=== PATIENT | female | born 1970 | race American Indian/Alaskan Native ===

== ENCOUNTER 2019-09-17 00:34 | Emergency (ER) | payer OTHER, SELFPAY ==
[2019-09-17] VITALS (9 sets, daily range): BP systolic 115–146; BP diastolic 76–97; PULSE 63–106; RESP 12–20; TEMP 36.6–36.8; O2SAT 97–100
--- NOTE | ~2019-09-17 | XR_ITS ---
XR wrist LT 2V DATE: 09/17/2019 00:57 INDICATION: Fall, left wrist injury and subsequent deformity TECHNIQUE: 2 views COMPARISON: None FINDINGS: There is a distal radial transverse mildly comminuted metaphyseal fracture with approximate ly three quarters dorsal displacement and prominent apex anterior angulation. Radiocarpal alignment i s intact. IMPRESSION: Dorsally displaced prominently apex anteriorly angulated distal radial metaphyseal fractu re Reviewed, dictated and finalized at location A. ETHYLENE COMBINER IMPRESSION: Dorsally displaced prominently apex anteriorly angulated distal rad ial metaphyseal fracture
--- NOTE | ~2019-09-17 | XR_ITS ---
XR wrist LT 2V DATE: 09/17/2019 04:38 INDICATION: Distal radial fracture TECHNIQUE: AP and lateral views COMPARISON: None FINDINGS: Forearm and wrist splint. There is approximately 50% dorsal displacement and approximately 17 degrees apex anterior angulation at the mildly comminuted transverse distal right metaphyseal fracture. Radiocarpal alignment is prese rved. There is dorsal inclination of the distal radial articular surface. The distal ulna appears int act. IMPRESSION: 50% dorsal displacement and approximately 17 degrees apex anterior angulation of distal r adial metaphyseal fracture Reviewed, dictated and finalized at location A. MACEUTICAL PLANT OPERATOR IMPRESSION: 50% dorsal displacement and approximately 17 degrees apex anterior angulation of distal radial metaphyseal fracture
--- NOTE | ~2019-09-17 | XR_ITS ---
XR wrist LT 2V DATE: 09/17/2019 02:04 INDICATION: Left wrist fracture TECHNIQUE: 2 views COMPARISON: 09/17/2019 left wrist FINDINGS: There is bandage wrap around the left wrist. There is approximately 50% dorsal displacement and diminished apex anterior angulation at the comminuted transverse distal radial metaphyseal fract ure. There is dorsal inclination of distal radial articular surface. The carpal alignment is intact. IMPRESSION: Diminished but residual dorsal displacement and apex anterior angulation Reviewed, dictated and finalized at location A. ICAL RESEARCH MANAGER IMPRESSION: Diminished but residual dorsal displacement and apex anterior angul ation
--- NOTE | 2019-09-17 01:09 | ED.UPPEXIN ---
HPI - Extremity Injury (Upper) General Chief Complaint: Extremity Injury, Upper Stated Complaint: BROKEN WRIST Time Seen by Provider: 09/17/19 01:04 Source: patient Mode of arrival: ambulatory Limitations: no limitations History of Present Illness HPI narrative: A 49 y/o female presents to the ED with c/o lt wrist pain. She notes that yesterday night she slipped and fell in her kitchen and landed on her left wrist. She rates the left wrist pain a 4/10 in the ED. Pt reports left index finger numbness, but denies HI. She notes that she drank some alcohol tonight. There is obvious deformity to her left wrist. Patient denies loss of consciousness. She denies headache pain. She is not anticoagulated. She denies any neck pain. She denies any weakness in her lower extremities or back pain. MD complaint: injury to: left and wrist Onset (ago): hour(s) (Yesterday night) Other Extremity Injury: Left: wrist Other injuries: none Place: home Severity scale (1-10): 4 Context: fall Associated symptoms: numbness (Left index finger) Related Data Allergies Allergy/AdvReac Type Severity Reaction Status Date / Time No Known Allergies Allergy Verified 09/17/19 01:16 Review of Systems Review of Systems: Narrative: CONSTITUTIONAL: Denies fever, chills, or sweats. EYES: Denies visual changes, redness, or discharge. CARDIOVASCULAR: Denies chest pain, palpitations, or edema. RESPIRATORY: Denies cough or dyspnea. GASTROINTESTINAL: Denies abdominal pain, nausea, vomiting, or diarrhea. SKIN: Denies rash or itching. MUSCULOSKELETAL: Denies back pain, joint pain, or myalgia. Reports left wrist pain. NEUROLOGIC: Denies headache, HI, or weakness. Reports left index finger numbness. All systems reviewed & are unremarkable except as noted in HPI and below PMFSH Past Medical History Medical History (Updated 09/17/19 @ 04:52 by Amanda Frazier MD) Anxiety Arm fracture, left Depression HTN (hypertension) Miscarriage Ovarian torsion Fixed with surgery UTI (urinary tract infection) Surgical History Surgical History (Updated 09/17/19 @ 01:49 by Fadumo Juarez) No pertinent past surgical history Family History Family History Other Diabetes mellitus Family history of alcoholism Social History Social History Second hand tobacco smoke exposure: No Alcohol intake: current Gender identity (if verbalized by the patient): Female Exam Narrative: Exam Narrative: GENERAL: Well-appearing, well-nourished, and in no acute distress. HEAD: Normocephalic, atraumatic. EYES: PERRLA and EOMI. ENT: Nares clear, no rhinorrhea or epistaxis. Mucous membranes moist. NECK: Supple. CHEST: Clear to auscultation. No respiratory distress. HEART: Regular rate and rhythm. No murmur heard. Normal peripheral pulses. Radial pulses 2+. ABDOMEN: Soft, nontender, nondistended, normal active bowel sounds. EXTREMITIES: Normal range of motion. No edema. Deformity to left wrist. Intact sensation median, ulnar, radial nerve distribution. Capillary refill less than 3 seconds. SKIN: Warm, dry, no rash. NEURO: No focal deficits. Alert and oriented X3. Neurovascularly intact. Course Course Emergency Course: Patient with left wrist fracture, deformity, but is neurovascularly intact at the time of assessment. Attempted initial reduction, but patient required procedural sedation due to degree of pain. Patient tolerated procedural sedation and reduction well as well as splinting. We had improved alignment on repeat x-rays. Given follow-up with orthopedic surgery and discharged home. Vital Signs Vital signs: Vital Signs Temperature 36.6 C 09/17/19 00:58 Pulse Rate 63 09/17/19 00:58 Respiratory Rate 18 09/17/19 00:58 Blood Pressure 115/83 09/17/19 00:58 Pulse Oximetry 100 09/17/19 00:58 Temperature 36.8 C 09/17/19 04:45 Pulse Rate 88 09/17/19 04:45 Resp
[2019-09-17] MEDS: MIDAZOLAM HCL 2 MG/2 ML VIAL 1 MG IV PUSH (04:11)
[2019-09-17] MEDS: SODIUM CHLORIDE 0.9% IV 1,000 ML 1000 ML (04:27)
== END 2019-09-17 05:02 | disposition home or self-care (01) ==
PROVIDERS: Emergency Provider Emergency Medicine; PCP Family Medicine
DX: S59.292A Other physeal fracture of lower end of radius, left arm, initial encounter for closed fracture (principal); Z87.440 Personal history of urinary (tract) infections; W01.0XXA Fall on same level from slipping, tripping and stumbling without subsequent striking against object, initial encounter
CPT/HCPCS: 25605; 73100; 99285; A9270; J2250; J3010; J7030

== ENCOUNTER 2020-02-13 14:18 | Outpatient (CLI) | payer OTHER, SELFPAY ==
--- NOTE | 2020-02-13 | ECG_ITS ---
Measurements Intervals [place] Rate: 108 P: -47 MT: 131 QRS: 11 QRSD: 88 T: 62 QT: 344 QTc: 462 Interpretive Statements ECTOPIC ATRIAL TACHYCARDIA DELAYED PRECORDIAL R/S TRANSITION LOW QRS VOLTAGE IN LIMB LEADS BORDERLINE ST-T WAVE ABNORMALITY- INF/LAT LEADS BASELINE ARTIFACT- I, II, AVR, AVL, AVF ABNORMAL ECG Electronically Signed On 02-15-2020 10:01:28 CDT by Nba Arevalo D.O.
--- NOTE | ~2020-02-13 | XR_ITS ---
XR chest 2V 02/13/2020 15:15 Indication: Redness of breath. Sternal chest pain. Hypertension. Procedure: 2 view chest Comparison: 03/28/2018 Findings: Heart size normal. Chronic elevation of the right diaphragm, possibly phrenic nerve paralys is. No focal air space disease, pulmonary edema, pleural effusion or suspected pneumothorax. No acute osseous abnormality. Impression: 1: No acute cardiopulmonary disease. Reviewed, dictated and finalized at location A. Impression: 1: No acute cardiopulmonary disease.
--- NOTE | ~2020-02-13 | CT_ITS ---
EXAMINATION: CT abdomen pelvis w con DATE: 02/13/2020 15:04 INDICATION: Abdominal pain. Jaundice. TECHNIQUE: Computed tomography (CT) of the abdomen and pelvis was performed without intravenous contr ast. Automated exposure control and iterative reconstruction technique were employed. Exam dose: 246 .85 mGy-cm total exam DLP. COMPARISON: None. FINDINGS: There is discoid atelectasis or scarring in the right lower lobe. No infiltrate or consolid ation at the lung bases. Heart size is normal. No pericardial or pleural effusion. There is hepatomegaly and prominent fatty infiltration of the liver. The gallbladder is present. No bile duct or pancreatic duct dilatation. Normal splenic size. No pancreatic mass lesion or calcification or ductal dilatation. Normal morphology of the adrenal glands. There is an approximately 10.5 mm right renal cyst. Small nonobstructing left renal calculus is sugge sted. The abdominal aorta is of normal caliber. No intraperitoneal or retroperitoneal or pelvic mass lesion or adenopathy. There is a mild amount of free fluid in the cul-de-sac extending into the right adnex al area. The uterus and adnexal areas are otherwise unremarkable. The urinary bladder is completely e vacuated. An approximately 1.5 cm cyst is noted along the left vaginal wall. No bowel obstruction or intraperitoneal free air. Normal appendix. No suspicious osteolytic or osteoblastic lesions are noted. IMPRESSION: Hepatomegaly Hepatic steatosis No evidence of bile duct dilatation to account for jaundice 10.5 mm right renal cyst Possible small nonobstructing left renal calculus Reviewed, dictated and finalized at Location A. Reviewed, dictated and finalized at location B.
[2020-02-13 14:56] LABS: Estimated Glomerular Filt Rate > 60
[2020-02-13 15:54] LABS: Basophils Absolute Auto 0.1 K/mm3 (0.0-0.1); Basophils Percent Auto 0.7 % (0.2-1.2); Eosinophils Percent Auto 0.2 % (0-4.4); Hematocrit 39.1 % (37.0-47.0); Immature Granulocyte Percent A 0.7 % (0-0.5); Lymphocytes Absolute Auto 0.64 K/mm3 (0.9-3.2); Lymphocytes Percent Auto 4.2 % (18.3-44.2); Mean Corpuscular HGB Conc 33.2 g/dl (32-36); Mean Corpuscular Hemoglobin 35.2 pg (26-34); Mean Platelet Volume 11.5 fl (7.4-10.4); Monocytes Absolute Auto 1.4 K/mm3 (0.1-0.6); Monocytes Percent Auto 8.8 % (2.6-8.5); Neutrophils Absolute Auto 13.1 K/mm3 (1.3-6.7); Neutrophils Percent Auto 85.4 % (45.5-73.1); Platelet Count Result 205 k/mm3 (150-375); Red Blood Count 3.69 M/mm3 (4.2-5.4); Red Cell Distribution Width 19.8 % (11.5-14.5); White Blood Count 15.3 K/mm3 (4.5-10.0)
[2020-02-13 16:15] LABS: Alanine Aminotransferase 31 U/L (4-35); Albumin Level 3.4 g/dL (3.5-5.1); Alkaline Phosphatase 543 U/L (38-126); Amylase 56 U/L (30-110); Aspartate Amino Transferase 151 U/L (14-36); Bilirubin,Total 10.3 mg/dL (0.2-1.3); Blood Urea Nitrogen 2 mg/dL (7-17); Calcium 8.8 mg/dL (8.4-10.2); Carbon Dioxide 25 mmol/L (22-30); Chloride 98 mmol/L (98-107); Estimated Glomerular Filt Rate > 60; Glucose 100 mg/dL (65-105); Lipase 219 U/L (23-300); Magnesium 1.6 mg/dL (1.6-2.3); Potassium 2.7 mmol/L (3.4-5.0); Sodium 135 mmol/L (137-145)
[2020-02-13 16:40] LABS: Hepatitis B Surface Antigen Negative (Negative)
[2020-02-13 16:46] LABS: HAV RESULT Negative (Negative); Hepatitis B Core IgM Result Negative (Negative)
[2020-02-13 16:58] LABS: Hepatitis C Virus Antibody Negative (Negative)
[2020-02-13 17:12] LABS: Folic Acid 3.9 ng/mL (2.76->20)
[2020-02-15 13:54] LABS: GGT 896 U/L (3-70)
== END 2020-02-13 14:19 | disposition home or self-care (01) ==
PROVIDERS: PCP Family Medicine; Visit Provider Nurse Practitioner Family
DX: K76.0 Fatty (change of) liver, not elsewhere classified (principal); R94.31 Abnormal electrocardiogram [ECG] [EKG]
CPT/HCPCS: 36415; 71046; 74177; 80053; 80074; 82150; 82607; 82746; 82977; 83690; 83735; 85025; 93005; Q9967

== ENCOUNTER 2020-02-13 16:40 | Observation (INO) | payer OTHER, SELFPAY ==
--- NOTE | ~2020-02-13 | MR_ITS ---
EXAMINATION: MR MRCP wo/w con/w 3D wo ind DATE: 02/14/2020 13:37 INDICATION: Abnormal liver function tests. TECHNIQUE: Magnetic resonance imaging (MRI) of the abdomen was performed without and with 10 mL Multi Jenna intravenous contrast. Sequences included coronal T2-weighted FS FSE, coronal T2-weighted FSE, a xial T1-weighted LAVA, coronal FS FIESTA, axial dual-echo T1-weighted SPGR, coronal lava-FLEX, sagitt al T2-weighted FSE, axial T2-weighted FSE, and axial DWI. Thick-slab T2-weighted FSE images were obta ined for magnetic resonance cholangiopancreatography (MRCP). Maximum intensity projection 3-D reconst ructions of the volumetric data were created by the technologist. Postcontrast sequences included cor onal LAVA-flex and time course of axial T1-weighted LAVA. COMPARISON: CT abdomen and pelvis 02/13/2020 FINDINGS: ABDOMEN MRI: There is diffuse hepatic steatosis. The gallbladder is normal in size. No gallstones. Th e spleen, pancreas, adrenal glands, and left kidney are normal. There is a 10 mm cyst in right kidney . There are no dilated loops of bowel. There are no pathologically enlarged lymph nodes. There is no free intraperitoneal fluid. ABDOMEN MRCP: The common duct is normal and measures 4 mm. No choledocholithiasis. IMPRESSION: 1. Diffuse hepatic steatosis. Reviewed, dictated and finalized at location A.
[2020-02-13 17:29] VITALS: BP 95/46; PULSE 112; RESP 18; TEMP 36.5; O2SAT 100
--- NOTE | 2020-02-13 17:32 | ECG_ITS ---
Measurements Intervals [place] Rate: 112 P: -44 WV: 128 QRS: 16 QRSD: 89 T: 29 QT: 342 QTc: 468 Interpretive Statements SINUS TACHYCARDIA DELAYED PRECORDIAL R/S TRANSITION BORDERLINE ST-T WAVE ABNORMALITY- DIFFUSE LEADS BASELINE ARTIFACT- I, III, V3-V5 ABNORMAL ECG Electronically Signed On 02-13-2020 19:29:31 CDT by Nba Arevalo D.O.
[2020-02-13 17:41] LABS: Hematocrit 39.1 % (37.0-47.0); Hemoglobin 13.1 g/dL (12.0-15.0); Mean Corpuscular HGB Conc 33.5 g/dl (32-36); Mean Corpuscular Hemoglobin 34.9 pg (26-34); Mean Corpuscular Volume 104.3 fl (80-100); Mean Platelet Volume 11.3 fl (7.4-10.4); Platelet Count Result 212 k/mm3 (150-375); Red Blood Count 3.75 M/mm3 (4.2-5.4); Red Cell Distribution Width 19.6 % (11.5-14.5)
[2020-02-13 17:56] LABS: Alanine Aminotransferase 30 U/L (4-35); Albumin Level 3.3 g/dL (3.5-5.1); Alkaline Phosphatase 475 U/L (38-126); Aspartate Amino Transferase 145 U/L (14-36); Bilirubin,Total 9.8 mg/dL (0.2-1.3); Blood Urea Nitrogen 2 mg/dL (7-17); Calcium 8.8 mg/dL (8.4-10.2); Carbon Dioxide 27 mmol/L (22-30); Chloride 96 mmol/L (98-107); Estimated CRCL calculation 100 ml/min; Estimated Glomerular Filt Rate > 60; Glucose 127 mg/dL (65-105); Lipase 132 U/L (23-300); Potassium 2.9 mmol/L (3.4-5.0); Sodium 132 mmol/L (137-145)
[2020-02-13 17:58] LABS: Anisocytosis 2+ (NORMAL); Band Neutrophils Percent 4 % (0-6); Lymphocytes Absolute Manual 0.56 K/mm3 (1.1-4.5); Monocytes Absolute Manual 1.26 K/mm3 (0.1-0.90); Monocytes Percent Manual 9 % (3-9); Neutrophils Absolute Manual 12.18 K/mm3 (1.7-7.2); Neutrophils Percent Manual 83 % (46-73); Platelet Estimate Adequate (Adequate); Total Cells Counted 100
[2020-02-13 18:11] VITALS: BP 101/65; PULSE 115; RESP 13; O2SAT 100
--- NOTE | 2020-02-13 18:12 | PC.NURSE ---
Patient unable to give urine at this time, patient will attempt again later. patient declines straight cath at this time.
[2020-02-13 19:09] LABS: Add Urine Microscopic? YES; Appearance Urine Clear (Clear); Bacteria Urine Trace /hpf; Bilirubin Urine 2+ (Negative); Blood Urine 3+ (Negative); Color Urine Amber (Yellow); Glucose Urine UA Negative (Negative); Ketones Urine Negative (Negative); Leukocyte Esterase Ur 1+ LEU/UL (Negative); Mucus Urine Rare /lpf; Nitrate Urine Negative (Negative); Protein Urine 1+ mg/dL (Negative); RBC Urine >75 /hpf (0-2); Squamous Epithelial Cell Urine Many /hpf (Few); WBC Urine 0-3 /hpf
[2020-02-13 19:12] LABS: Specific Grav Ur > 1.060 (1.001-1.035)
[2020-02-13 19:16] LABS: INR 1.2; Partial Thromboplastin Time 31.3 SECONDS (22.3-36.8); Prothrombin Time 15.3 Seconds (11.1-14.7)
--- NOTE | 2020-02-13 19:20 | ED.GENADULT ---
HPI - General Adult General Chief complaint: Recheck/Abnormal Lab/Rx Stated complaint: jaundice, low potassium Time Seen by Provider: 02/13/20 17:55 History of Present Illness HPI narrative: Patient is a 49 y/o female sent to ED by PCP for low potassium. She states that she has generalized abdominal pain for 1 week. She describes her pain as aching and rates it as 4/10. There is alleviating or exacerbating factor. Her pain radiates to her pain to chest sometimes. She has no vomiting or diarrhea. She was seen by her PCP today. Labs were ordered. She was then told by PCP's office to come to ED for evaluation due to abnormal labs. Related Data Home Medications Medication Instructions Recorded Confirmed lisinopril-hydrochlorothiazide 1 tablet PO DAILY 02/14/20 02/14/20 Allergies Allergy/AdvReac Type Severity Reaction Status Date / Time No Known Allergies Allergy Verified 09/26/19 13:44 Review of Systems Constitutional: Constitutional: Denies chills, Denies fever(s), Denies headache(s), Reports lethargy, Reports malaise and Denies weakness Eyes: Eyes: Denies blurry vision ENT: Denies headache(s) and Denies neck pain Cardiovascular: Cardiovascular: Reports chest pain and Denies dyspnea Respiratory: Respiratory: Denies cough and Denies dyspnea Gastrointestinal: Gastrointestinal: Reports abdominal pain, Denies diarrhea, Denies nausea and Denies vomiting Genitourinary: Genitourinary: Denies hematuria and Denies dysuria Musculoskeletal: Musculoskeletal: Denies back pain and Denies neck pain Neurologic: Denies headache(s) and Denies weakness [facility] Past Medical History Medical History Anxiety Arm fracture, left Depression HTN (hypertension) Miscarriage Ovarian torsion Fixed with surgery UTI (urinary tract infection) Surgical History Surgical History No pertinent past surgical history Family History Family History Other Diabetes mellitus Family history of alcoholism Social History Social History Smoking status: Former smoker Tobacco type: cigars Second hand tobacco smoke exposure: No Alcohol intake: current Drinks per week: 4 Substance use: never Gender identity (if verbalized by the patient): Female Sexual Orientation (if Verbalized by the Patient): Straight or Heterosexual Spiritual care concerns: No Exam Const: General: no acute distress and ill appearing Orientation/consciousness: oriented to person, oriented to place, oriented to time and patient oriented x3 HENMT: Head: normocephalic Ears: external ears normal General nose exam: Normal external nose present Eyes: General: appearance normal, both eyes and all related structures Conjunctivae: conjunctival abnormality (yellowish discoloration) diffuse Neck: Neck: normal visual inspection and full ROM Chest: Chest palpation & inspection: normal inspection of the chest and no tenderness Resp: Effort & Inspection: normal respiratory effort Auscultation: clear to auscultation bilaterally Cardio: Rate: tachycardic Rhythm: regular rhythm GI: GI Palp: No abdominal tenderness and Yes Soft to palpation Skin: General skin exam: normal color and turgor normal Neuro: General: oriented to person, oriented to place, oriented to time and patient oriented x3 Cognition (Neuro): normal cognition Extrem: General: normal to inspection, full ROM and no pedal edema Psych: Appearance: grossly normal Mental Status: mental status grossly normal Affect: normal affect Course Consultations Consultation #1: Discussed with Dr. Aguilar (GI), who recommends admission for observation and he will consult. Date: 02/13/20 Time: 20:44 Consultation #2: Discussed with Dr. Fierro, who will admit for observation. Date: 02/13/20 Time: 20:53
[2020-02-13] MEDS: POTASSIUM CHLORIDE 20 MEQ TABLET 40 MEQ PO (19:21)
[2020-02-13 20:56] VITALS: BP 97/63; PULSE 93; RESP 20; O2SAT 100
[2020-02-13 23:17] VITALS: BP 102/67; PULSE 93; RESP 19; O2SAT 100
[2020-02-13 23:40] VITALS: BP 115/66; PULSE 102; RESP 16; TEMP 36.8; O2SAT 100; BMI 17.9
--- NOTE | 2020-02-13 23:44 | ADMGEN ---
This patient, Nirmala Baker, was admitted to [facility] Surg Room 303-01. Patient/family oriented to hospital policies and general routines including ID bracelet, bed and alarms, visiting hours, pain management, procedures, bathroom and other care routines, personal items, smoking policy, room service/diet, and visiting hours. Valuables list has been completed. Information on how to activate the Rapid Response Team has been discussed. Patient/Family are encouraged to report perceived risks to care and to ask questions if they do not understand what they are told or what they should do.
[2020-02-14] VITALS (9 sets, daily range): BP systolic 93–113; BP diastolic 52–75; PULSE 68–112; RESP 16; TEMP 36.7–37.4; O2SAT 99–100; BMI 17.9
--- NOTE | 2020-02-14 08:05 | WPDGICN ---
Assessment and Plan Assessment and plan (1) Alcoholic hepatitis: Code(s): K70.10 - Alcoholic hepatitis without ascites Status: Acute Assessment and Plan: Marked elevation of LFTs in a pattern consistent with alcoholic hepatitis. AST much greater than ALT. CT scan with no evidence of biliary dilatation. Hepatitis ABC serologies are negative. Plan is for strict alcohol avoidance. Alcohol rehabilitation strongly encouraged after discharge. Patient will need to avoid alcohol. Outpatient follow-up in the office will be arranged. Will obtain additional lab studies to exclude any other potential etiologic factors. GI Consult Note Consult date/time: 02/14/20 08:05 HPI: Nirmala Baker is a 49 year old female seen in evaluation at the request of the emergency room. Patient in usual state of health 3 she reports over last 2 weeks having had a chest and upper abdominal heaviness. For this reason she presented to primary care service electrolytes revealed a low potassium. Upon being evaluated in the emergency room she was noted to be jaundiced with marked elevation of LFTs. Patient denies a fever. She states her weight appetite bowel movements are normal. The chest having this is constant not related to activity nor dietary intake. She has a past medical history of rather heavy alcohol intake for many many years. She states over the last 5 years or more since the of her brother she has been drinking rather heavily. Predominantly vodka. In the past she was told that she had elevated LFTs and for a brief time was associated with AA. She has not attended this for quite some time. Review of Systems Review of Systems: All systems reviewed & are unremarkable except as noted in HPI and below PMFSH Past Medical History Medical History Anxiety Arm fracture, left Depression HTN (hypertension) Miscarriage Ovarian torsion Fixed with surgery UTI (urinary tract infection) Surgical History Surgical History No pertinent past surgical history Family History Family History Other Diabetes mellitus Family history of alcoholism Social History Social History Smoking status: Former smoker Tobacco type: cigars Second hand tobacco smoke exposure: No Alcohol intake: current Drinks per week: 4 Substance use: never Gender identity (if verbalized by the patient): Female Sexual Orientation (if Verbalized by the Patient): Straight or Heterosexual Spiritual care concerns: No Meds Home Medications and Allergies Home Medications Medication Instructions Recorded Confirmed Type alprazolam 0.25 mg tablet 0.25 mg PO TID PRN #90 tablet 12/16/19 02/14/20 Rx lisinopril-hydrochlorothiazide 1 tablet PO DAILY 02/14/20 02/14/20 History Allergies Allergy/AdvReac Type Severity Reaction Status Date / Time No Known Allergies Allergy Verified 09/26/19 13:44 Vital Signs Vital Signs - 24 hr 02/13/20 17:29 02/13/20 18:11 02/13/20 20:56 Temperature 97.7 F Pulse Rate 112 H 115 H 93 Respiratory Rate 18 13 20 Blood Pressure 95/46 L 101/65 97/63 L Pulse Oximetry 100 100 100 02/13/20 23:17 02/13/20 23:40 02/14/20 00:00 Temperature 98.2 F Pulse Rate 93 102 H 97 Respiratory Rate 19 16 Blood Pressure 102/67 115/66 Pulse Oximetry 100 100 02/14/20 04:00 02/14/20 06:00 Temperature 99.4 F Pulse Rate 112 H 86 Respiratory Rate 16 Blood Pressure 93/52 L Pulse Oximetry 100 Exam Narrative: Exam Narrative: Physical exam reveals patient to be alert. She is afebrile. HEENT exam reveals scleral icterus. Lungs are clear to auscultation and percussion. Heart is without murmur or extra sounds. Abdominal exam bowel sounds are present soft mild midepigastric enlargement of her
[2020-02-14 09:19] LABS: Ammonia 49 umol/L (9-30)
[2020-02-14 09:28] LABS: Alanine Aminotransferase 26 U/L (4-35); Albumin Level 2.9 g/dL (3.5-5.1); Alkaline Phosphatase 417 U/L (38-126); Aspartate Amino Transferase 124 U/L (14-36); Bilirubin Direct 3.4 mg/dL (0-0.3); Bilirubin,Total 8.3 mg/dL (0.2-1.3); Calcium 8.3 mg/dL (8.4-10.2); Carbon Dioxide 27 mmol/L (22-30); Chloride 103 mmol/L (98-107); Estimated CRCL calculation 147 ml/min; Estimated Glomerular Filt Rate > 60; Glucose 89 mg/dL (65-105); Potassium 3.4 mmol/L (3.4-5.0); Sodium 135 mmol/L (137-145)
[2020-02-14 09:29] LABS: Bilirubin Direct 3.4 mg/dL (0-0.3); Bilirubin Indirect 1.8 mg/dL (0-1.1); Bilirubin,Total 8.3 mg/dL (0.2-1.3)
[2020-02-14 09:29] LABS: Cholesterol 214 mg/dL (0-200); HDL Direct 15 mg/dL; Triglycerides 283 mg/dL (<150)
[2020-02-14 09:40] LABS: LDL Cholesterol Direct 117 mg/dL
[2020-02-14 09:56] LABS: Iron 148 ug/dL (37-170)
[2020-02-14 09:57] LABS: Blood Urea Nitrogen < 2 mg/dL (7-17)
[2020-02-14 10:06] LABS: Percent Iron Saturation 79 % (20-50)
[2020-02-14 11:02] LABS: Erythrocyte Sedimentation Rate 54 mm/hr (0-20)
--- NOTE | 2020-02-14 15:36 | PM.IMHP ---
H&P: HPI History of Present Illness Chief complaint: jaundice Narrative: Nirmala Baker is a 49 year old female with alcohol abuse here for abnormal labs and abdominal pain. Patient states that she started having right upper quadrant and right lower quadrant abdominal pain about 2 weeks ago. She says this is a constant squeezing/tight feeling. She says nothing makes it worse and nothing makes it better. She feels like the skin around her stomach is numb. She has not noticed any jaundice features but her mentioned her eyes being yellow a few days ago. She also noticed her urine being darker 2 months ago. She says she usually drinks 4-5 days a week and drinks 4-5 drinks with 2-3 shots of vodka each. She has been having some nausea and vomiting but no vomiting since being here. She has mild constipation but her last BM was today and has no blood or dark color to it. She denies diarrhea, withdraw type symptoms, chest pain, shortness of breath, itching, fevers, or travel. She has never had an EGD. Her last colonoscopy was 2 years ago. Review of Systems Review of Systems: All systems reviewed & are unremarkable except as noted in HPI and below PMFSH Past Medical History Medical History (Updated 02/14/20 @ 15:51 by Roxie Soto PA-C) Anxiety Arm fracture, left Depression HTN (hypertension) Miscarriage Ovarian torsion Fixed with surgery UTI (urinary tract infection) Surgical History Surgical History (Updated 02/14/20 @ 15:48 by Roxie Soto PA-C) H/O left wrist surgery No pertinent past surgical history Family History Family History (Updated 02/14/20 @ 15:49 by Roxie Soto PA-C) Father Gastric cancer Sibling Alcoholism Other Diabetes mellitus Family history of alcoholism Social History Social History (Updated 02/14/20 @ 15:50 by Roxie Soto PA-C) Social History: As stated above the patient drinks equivalent of 10 drinks 4-5 days a week. She is no longer smoking but has the past history of smoking. She does not work. Her surrogate decision maker is her Marcelo Smoking status: Former smoker Tobacco type: cigars Second hand tobacco smoke exposure: No Alcohol intake: current Drinks per week: 4 Substance use: never Gender identity (if verbalized by the patient): Female Sexual Orientation (if Verbalized by the Patient): Straight or Heterosexual Spiritual care concerns: No Meds Home Medications and Allergies Home Medications Medication Instructions Recorded Confirmed Type alprazolam 0.25 mg tablet 0.25 mg PO TID PRN #90 tablet 12/16/19 02/14/20 Rx lisinopril-hydrochlorothiazide 1 tablet PO DAILY 02/14/20 02/14/20 History Allergies Allergy/AdvReac Type Severity Reaction Status Date / Time No Known Allergies Allergy Verified 09/26/19 13:44 Vital Signs Vital Signs - 24 hr 02/13/20 17:29 02/13/20 18:11 02/13/20 20:56 Temperature 97.7 F Pulse Rate 112 H 115 H 93 Respiratory Rate 18 13 20 Blood Pressure 95/46 L 101/65 97/63 L Pulse Oximetry 100 100 100 02/13/20 23:17 02/13/20 23:40 02/14/20 00:00 Temperature 98.2 F Pulse Rate 93 102 H 97 Respiratory Rate 19 16 Blood Pressure 102/67 115/66 Pulse Oximetry 100 100 02/14/20 04:00 02/14/20 06:00 02/14/20 08:00 Temperature 99.4 F Pulse Rate 112 H 86 91 Respiratory Rate 16 Blood Pressure 93/52 L Pulse Oximetry 100 02/14/20 14:00 Temperature 98.3 F Pulse Rate 98 Respiratory Rate 16 Blood Pressure 110/75 Pulse Oximetry 99 Exam Narrative: Exam Narrative: General: Jaundice patient resting comfortably in bed in no acute distress HEENT: Normocephalic, atraumatic, PERRL, Sclerae icteric, oral mucosa moist. Neck: Supple Resp: CTA Heart: RRR with no murmurs Abd: Soft, tender to the right upper quadrant in the right lower quadrant. Positive bowel sounds. Sensation intact Skin: Yellow, Warm and dry Extremities: No swelling, erythem
[2020-02-14] MEDS: ALPRAZolam 0.25 MG TABLET PO (15:41)
[2020-02-14] MEDS: IBUPROFEN 400 MG TABLET PO (16:42)
[2020-02-14] MEDS: CHOLESTYRAMINE (W/ SUGAR) 4 GM POWD.PACK PO (17:48)
[2020-02-15] VITALS: PULSE 83
[2020-02-15 04:00] VITALS: PULSE 98
[2020-02-15 06:00] VITALS: BP 118/62; PULSE 88; RESP 16; TEMP 36.8; O2SAT 100
[2020-02-15 06:32] LABS: INR 1.2; Prothrombin Time 14.7 Seconds (11.1-14.7)
[2020-02-15 06:33] LABS: Alanine Aminotransferase 23 U/L (4-35); Albumin Level 2.7 g/dL (3.5-5.1); Alkaline Phosphatase 382 U/L (38-126); Aspartate Amino Transferase 109 U/L (14-36); Bilirubin Direct 2.4 mg/dL (0-0.3); Bilirubin,Total 7.1 mg/dL (0.2-1.3); Blood Urea Nitrogen 4 mg/dL (7-17); Calcium 8.2 mg/dL (8.4-10.2); Carbon Dioxide 30 mmol/L (22-30); Chloride 103 mmol/L (98-107); Estimated CRCL calculation 116 ml/min; Estimated Glomerular Filt Rate > 60; Glucose 92 mg/dL (65-105); Magnesium 1.9 mg/dL (1.6-2.3); Potassium 3.3 mmol/L (3.4-5.0); Sodium 138 mmol/L (137-145)
[2020-02-15 08:00] VITALS: PULSE 95
[2020-02-15] MEDS: CHOLESTYRAMINE (W/ SUGAR) 4 GM POWD.PACK PO (09:29)
[2020-02-15] MEDS: ATORVASTATIN 10 MG TABLET PO (09:29)
[2020-02-15] MEDS: POTASSIUM CHLORIDE 20 MEQ TABLET 40 MEQ PO (09:29)
[2020-02-15] MEDS: IBUPROFEN 400 MG TABLET PO (09:42)
--- NOTE | 2020-02-15 10:31 | WPDGICN ---
Assessment and Plan Additional Plan Patient continues to notice epigastric fullness and pressure. On physical exam she is alert. Vital signs are stable. HEENT exam unremarkable. Lungs are clear. Heart without murmur. Abdomen soft and nontender. Palpable left lobe of the liver in the midepigastric area. This appears to be source for his discomfort. Impression 1. Hepatomegaly. Appears to account for patient's admit abdominal discomfort. 2. Alcoholic hepatitis. Markedly elevated LFTs are identified. Long discussion with patient regarding alcohol rehabilitation and avoidance. Plan is for alcohol avoidance and rehab we will plan to follow up in the office in 2-3 weeks along with follow-up LFTs at that time. GI Consult Note Consult date/time: 02/15/20 10:31 HPI: Nirmala Baker is a 49 year old female [facility] Past Medical History Medical History (Updated 02/14/20 @ 15:51 by Roxie Soto PA-C) Anxiety Arm fracture, left Depression HTN (hypertension) Miscarriage Ovarian torsion Fixed with surgery UTI (urinary tract infection) Surgical History Surgical History (Updated 02/14/20 @ 15:48 by Roxie Soto PA-C) H/O left wrist surgery No pertinent past surgical history Family History Family History (Updated 02/14/20 @ 15:49 by Roxie Soto PA-C) Father Gastric cancer Sibling Alcoholism Other Diabetes mellitus Family history of alcoholism Social History Social History (Updated 02/14/20 @ 15:50 by Roxie Soto PA-C) Social History: As stated above the patient drinks equivalent of 10 drinks 4-5 days a week. She is no longer smoking but has the past history of smoking. She does not work. Her surrogate decision maker is her Marcelo Smoking status: Former smoker Tobacco type: cigars Second hand tobacco smoke exposure: No Alcohol intake: current Drinks per week: 4 Substance use: never Gender identity (if verbalized by the patient): Female Sexual Orientation (if Verbalized by the Patient): Straight or Heterosexual Spiritual care concerns: No Meds Home Medications and Allergies Home Medications Medication Instructions Recorded Confirmed Type alprazolam 0.25 mg tablet 0.25 mg PO TID PRN #90 tablet 12/16/19 02/14/20 Rx lisinopril-hydrochlorothiazide 1 tablet PO DAILY 02/14/20 02/14/20 History Allergies Allergy/AdvReac Type Severity Reaction Status Date / Time No Known Allergies Allergy Verified 09/26/19 13:44 Vital Signs Vital Signs - 24 hr 02/14/20 12:00 02/14/20 14:00 02/14/20 16:00 Temperature 98.3 F Pulse Rate 99 98 96 Pulse Rate [Monitor] 95 Respiratory Rate 16 Blood Pressure 110/75 113/61 Pulse Oximetry 99 02/14/20 20:00 02/14/20 21:26 02/15/20 00:00 Temperature 98.0 F Pulse Rate 87 68 83 Pulse Rate [Monitor] Respiratory Rate 16 Blood Pressure 105/61 Pulse Oximetry 100 02/15/20 04:00 02/15/20 06:00 Temperature 98.2 F Pulse Rate 98 88 Pulse Rate [Monitor] Respiratory Rate 16 Blood Pressure 118/62 Pulse Oximetry 100 Results Labs CBC & Chem 7: 02/13/20 17:34 02/15/20 05:43 Labs: BMP 02/15/20 05:43 Sodium 138 Potassium 3.3 L Chloride 103 Carbon Dioxide 30 BUN 4 L Creatinine 0.40 L Glucose 92 Calcium 8.2 L Liver Function 02/15/20 Range/Units 05:43 Total Bilirubin 7.1 H (0.2-1.3) mg/dL Direct Bilirubin 2.4 H (0-0.3) mg/dL AST 109 H (14-36) U/L ALT 23 (4-35) U/L Alkaline Phosphatase 382 H (38-126) U/L Albumin 2.7 L (3.5-5.1) g/dL
--- NOTE | 2020-02-15 11:27 | PM.DS ---
DS: Admitting Diagnosis Admitting Diagnosis Admitting Diagnosis: Alcoholic hepatitis without ascites DS: Discharge Diagnosis Discharge Diagnosis (1) Alcoholic hepatitis: Code(s): K70.10 - Alcoholic hepatitis without ascites Status: Acute Assessment and Plan: -----patient's last bilirubin is 7.1 from 10.3 on admission. She is not experiencing any itching but does have jaundice and tea-colored urine. MRCP shows hepatic steatosis. Alk phos is significantly elevated. AST high. These abnormalities are likely linked to alcoholism but we will rule out more rare conditions such as PSC, PBC, autoimmune and other causes. GGT, AFP, AAT and M2ab still pending. Hep screen negative. GI plans to follow outpt. Pt understands she needs to quit drinking. (2) Alcohol abuse: Code(s): F10.10 - Alcohol abuse, uncomplicated Status: Acute Assessment and Plan: -----No signs of withdraw. (3) Hypokalemia: Code(s): E87.6 - Hypokalemia Status: Acute Assessment and Plan: -----Resolved. (4) Jaundice: Code(s): R17 - Unspecified jaundice Status: Acute Assessment and Plan: -----See above. (5) Hypertension: Code(s): I10 - Essential (primary) hypertension Status: Acute Assessment and Plan: -----Last bp 118/62. Pt has been running low. Bp meds stopped. pcp notified. (6) Anxiety: Code(s): F41.9 - Anxiety disorder, unspecified Status: Acute Assessment and Plan: -----PRN xanax. (7) Leukocytosis: Code(s): D72.829 - Elevated white blood cell count, unspecified Status: Acute Assessment and Plan: -----WBC improving. No evidence of infection on exam or imaging. CXR, UA, and MRCP show no infection. Pt has been afebrile and has no complaints. May be chronic. Spoke with pcp about this. f/u as needed. (8) Hematuria: Code(s): R31.9 - Hematuria, unspecified Status: Acute Assessment and Plan: -----Noted in her UA. Pt has hx of smoking. Plans to f/u with urology outpatient. Educated pt on differential. DS: Summary Hospital Course Reason for hospitalization: abnormal labs Hospital Course: Pt is a 49 y/o female here for hypokalemia and abnormal liver functions. Pt was placed in observation and did well in the hospital. Her bili slowly trended down and she showed no signs of infection. Work up as above, but jaundice and abnormal labs likely d/t alcoholic hepatitis. Pt had sensation of 'numbness' to her stomach in all 4 quadrants. No abnormalities seen on exam and pt was able to differentiate hot, cold, sharp and dull. Overall, patient has no complaints the next day and seems motiviated to quit drinking. She understands that if she doesn't she has a high chance of mortality. She has no symptoms to ETOH withdraw and has no hx of this either. Pt was educated about the worrisome signs and symptoms to come back to the ER for and was discharged in stable condition. Status at Discharge Functional status at discharge: independent ambulation Overall status at discharge: patient is progressing back to baseline Time Spent with Patient Time attestation: Total time spent providing and/or coordinating discharge services:32 min Time spent: Greater than 30 minutes Exam Narrative: Exam Narrative: General: Jaundice patient resting comfortably in bed in no acute distress HEENT: Normocephalic, atraumatic, PERRL, Sclerae icteric, oral mucosa moist. Neck: Supple Resp: CTA Heart: RRR with no murmurs Abd: Soft, tender to the right upper quadrant in the right lower quadrant. Positive bowel sounds. Pt has normal hot/cold/sharp/dull sensation in all four quadrants. Skin: Yellow, Warm and dry Extremities: No swelling, erythema or pain to palpation Neuro: Alert and Oriented x4 . CN 2-12 intact. No focal neurological deficits. DS: Data Data Completed and Pending Labs on day of discharge: Blake
[2020-02-15 14:00] VITALS: BP 134/91; PULSE 86; RESP 18; TEMP 36.6; O2SAT 100
[2020-02-16 10:05] LABS: GGT 764 U/L (3-70)
[2020-02-17 09:28] LABS: Mitochondrial (M2) Ab (IgG) <=20.0 U (<=20.0)
[2020-02-18 17:58] LABS: Alpha Fetoprotein Tumor Marker 2.6 ng/mL (<6.1)
== END 2020-02-15 13:30 | disposition home or self-care (01) ==
LOC: ANHED 18:18 → ANH3MEDSUR 21:51
PROVIDERS: Emergency Medicine; Internal Medicine Gastroenterology; Physician Assistant; Admitting Provider Family Medicine; Emergency Provider Emergency Medicine; PCP Family Medicine; Visit Provider Internal Medicine
DX: K70.10 Alcoholic hepatitis without ascites (principal); F10.10 Alcohol abuse, uncomplicated; R31.9 Hematuria, unspecified; D72.829 Elevated white blood cell count, unspecified; I10 Essential (primary) hypertension; F41.9 Anxiety disorder, unspecified; Z87.891 Personal history of nicotine dependence; Z79.899 Other long term (current) drug therapy
CPT/HCPCS: 36415; 74183; 76376; 80048; 80053; 80061; 80076; 81001; 81025; 82104; 82105; 82140; 82247; 82248; 82728; 82977; 83520; 83540; 83550; 83690; 83735; 84443; 85025; 85610; 85652; 85730; 86038; 86039; 93005; 99285; A9270; A9577; G0378

== ENCOUNTER 2020-02-21 09:15 | Outpatient (CLI) | payer OTHER, SELFPAY ==
[2020-02-21 09:40] LABS: Blood Urea Nitrogen 3 mg/dL (7-17); Calcium 8.2 mg/dL (8.4-10.2); Carbon Dioxide 24 mmol/L (22-30); Chloride 106 mmol/L (98-107); Estimated Glomerular Filt Rate > 60; Glucose 117 mg/dL (65-105); Potassium 3.8 mmol/L (3.4-5.0); Sodium 135 mmol/L (137-145)
== END 2020-02-21 09:16 | disposition home or self-care (01) ==
LOC: ANHLAB 09:16
PROVIDERS: PCP Family Medicine; Visit Provider Physician Assistant
DX: E87.6 Hypokalemia (principal)
CPT/HCPCS: 36415; 80048

== ENCOUNTER 2020-03-23 20:18 | Inpatient (IN) | payer OTHER, SELFPAY ==
--- NOTE | ~2020-03-23 | CT_ITS ---
EXAMINATION: CT abdomen pelvis w con EXAM DATE: 03/23/2020 22:31 INDICATION: Abdominal distention and pain. TECHNIQUE: Spiral CT of the abdomen and pelvis was performed following intravenous injection of 100 m L Omnipaque 350. Axial, coronal and sagittal images were reviewed. The dose-length product (DLP) fo r this examination was 453.21 mGy-cm. The exposure was tailored according to patient size (auto mA e xposure control), and iterative reconstruction (ASIR) was used as additional dose reduction technique . Comparison is made to prior examination from 11/25/2015. FINDINGS: There is large amount of ascites. There is diffusely heterogeneous liver density and enhanc ement, hepatic steatosis, hepatomegaly and possible cirrhosis. Spleen, pancreas and adrenal glands ar e unremarkable. Gallbladder is unremarkable. No biliary obstruction. Portal and splenic veins are patent. Kidneys enhance symmetrically. There is no hydronephrosis. Some uterine heterogeneity, pr obably fibroids. The bladder is undistended at time of imaging. There is no retroperitoneal or pelv ic lymphadenopathy. The appendix is normal. The stomach and small bowel are unremarkable. There is expected amount of c olonic stool. No free intraperitoneal gas. Small right pleural effusion. Multi segmental right mi ddle and lower lobe atelectasis. Subsegmental left basilar atelectasis. There are no osteoblastic or osteolytic lesions identified. In 2016, there is severe hepatic steatosis, less today. The ascites h as developed. Uterine heterogeneity, fibroids unchanged. IMPRESSION: 1. Hepatic steatosis, hepatomegaly, possible cirrhosis. 2. Large amount of ascites. 3. Bibasilar atelectasis, multi segmental on the right. 4. Small right pleural effusion. 5. Fibroids. Reviewed, dictated and finalized at location A.
--- NOTE | ~2020-03-23 | XR_ITS ---
EXAMINATION: XR chest 2V DATE: 03/26/2020 16:43 INDICATION: Small right pleural effusion TECHNIQUE: PA and lateral views of the chest are obtained. COMPARISON: 02/13/2020 FINDINGS: A small right pleural effusion is unchanged. There is unchanged elevation of the right darius diaphragm compared to the left. There are minimal airspace opacities of the right lung base. No pneum othorax is identified. The heart size is normal. There is mild thoracic spondylosis. IMPRESSION: 1. Small right pleural effusion, stable. 2. Right basilar airspace opacities, likely with atelectasis. Reviewed, dictated and finalized at location A.
--- NOTE | ~2020-03-23 | US_ITS ---
EXAMINATION: US paracentesis abd w/image DATE: 03/24/2020 11:54 INDICATION: Ascites. TECHNIQUE: The procedure and its risks, benefits, and alternatives were discussed with the patient. P otential risks discussed included bleeding and infection. The skin was prepped and draped in sterile fashion. 1% lidocaine was used for local anesthesia. Under ultrasound guidance, a 5 Fr catheter with trochar was advanced into the ascites in the left lower quadrant. Fluid was aspirated. The catheter w as removed, and a dressing was applied. There were no immediate complications. FINDINGS: Ultrasound images demonstrate ascites and the catheter within the fluid. IMPRESSION: 1. Successful ultrasound-guided paracentesis yielding 5000 mL of cloudy, yellow fluid. Reviewed, dictated and finalized at location A. IMPRESSION: 1. Successful ultrasound-guided paracentesis yielding 5000 mL of cloudy, yello w fluid.
[2020-03-23 20:42] VITALS: BP 122/66; PULSE 125; RESP 20; TEMP 36.3; O2SAT 97
[2020-03-23 21:03] LABS: Basophils Absolute Auto 0.1 K/mm3 (0.0-0.1); Basophils Percent Auto 0.4 % (0.2-1.2); Eosinophils Absolute Auto 0.1 K/mm3 (0-0.3); Eosinophils Percent Auto 0.8 % (0-4.4); Hematocrit 35.7 % (37.0-47.0); Hemoglobin 12.1 g/dL (12.0-15.0); Immature Granulocyte Absolute 0.06 K/mm3 (0.00-0.031); Immature Granulocyte Percent A 0.5 % (0-0.5); Lymphocytes Absolute Auto 1.22 K/mm3 (0.9-3.2); Lymphocytes Percent Auto 9.4 % (18.3-44.2); Mean Corpuscular HGB Conc 33.9 g/dl (32-36); Mean Corpuscular Hemoglobin 32.5 pg (26-34); Mean Platelet Volume 10.9 fl (7.4-10.4); Monocytes Absolute Auto 0.8 K/mm3 (0.1-0.6); Monocytes Percent Auto 6.3 % (2.6-8.5); Neutrophils Absolute Auto 10.7 K/mm3 (1.3-6.7); Neutrophils Percent Auto 82.6 % (45.5-73.1); Platelet Count Result 151 k/mm3 (150-375); Red Blood Count 3.72 M/mm3 (4.2-5.4); White Blood Count 12.9 K/mm3 (4.5-10.0)
--- NOTE | 2020-03-23 21:11 | ED.ABDPAIN ---
HPI - Abdominal Pain General Chief Complaint: Abdominal Pain Stated Complaint: abdominal pain, diarrhea Time Seen by Provider: 03/23/20 21:11 Source: patient Mode of arrival: ambulatory Limitations: no limitations History of Present Illness HPI narrative: Patient is a 49 F who presents for evaluation of abd pain and distension. Pt reports intermittent swelling over the past three weeks. Pt states at times it seems to come and go, but has had swelling before that resolved on its own. Pt reports heavy alcohol use history, but denies current alcohol use. She denies fever, chills or vomiting. She reports a good appetite. She reports some intermittent diarrhea, none today. Related Data Allergies Allergy/AdvReac Type Severity Reaction Status Date / Time No Known Allergies Allergy Verified 09/26/19 13:44 Review of Systems Review of Systems: Narrative: CONSTITUTIONAL: Denies fever, chills, or sweats. ENT: Denies rhinorrhea, congestion, sore throat, or otalgia. CARDIOVASCULAR: Denies chest pain, palpitations, or edema. RESPIRATORY: Denies cough or dyspnea. GASTROINTESTINAL: Reports abd pain, distention GENITOURINARY: Denies dysuria or hematuria. SKIN: Denies rash or itching. MUSCULOSKELETAL: Denies back pain, joint pain, or myalgia. NEUROLOGIC: Denies headache, numbness, or weakness. [facility] Past Medical History Medical History Anxiety Arm fracture, left Depression HTN (hypertension) Miscarriage Ovarian torsion Fixed with surgery UTI (urinary tract infection) Surgical History Surgical History H/O left wrist surgery No pertinent past surgical history Social History Social History Social History: As stated above the patient drinks equivalent of 10 drinks 4-5 days a week. She is no longer smoking but has the past history of smoking. She does not work. Her surrogate decision maker is her Marcelo Smoking status: Former smoker Tobacco type: cigars Second hand tobacco smoke exposure: No Alcohol intake: current Drinks per week: 4 Substance use: never Gender identity (if verbalized by the patient): Female Spiritual care concerns: No Exam Narrative: Exam Narrative: GENERAL: Awake, alert, conversant HEAD: Normocephalic, atraumatic. EYES: PERRLA and EOMI.Positive scleral icterus. ENT: Nares clear, no rhinorrhea or epistaxis. Mucous membranes moist. NECK: Supple. CHEST: No respiratory distress, breathing even and non labored HEART: Tachycardic rate, sinus rhythm ABDOMEN:Distension, mild tenderness throughout, no guarding, non rigid EXTREMITIES: Normal range of motion. No lower extremity edema. SKIN: Warm, dry, no rash. NEURO:No focal deficits. Alert and oriented x3 Procedures Paracentesis Paracentesis #1: Paracentesis Date: 03/24/20 Paracentesis Time: 00:21 Time Out Performed: Yes Local Anesthetic: lidocaine 1% Amount of anesthesia used (mL): 5 Fluid: clear and sent to lab for analysis Post Procedure Exam: awake, alert, normal BP, normal HR and normal SpO2 Patient Tolerated Procedure: well and no complications Complications: none Paracentesis Comment: Removed 60 ml for diagnostic paracentesis Course Vital Signs Vital signs: Vital Signs Temperature 36.3 C L 03/23/20 20:42 Pulse Rate 125 H 03/23/20 20:42 Respiratory Rate 20 03/23/20 20:42 Blood Pressure 122/66 03/23/20 20:42 Pulse Oximetry 97 03/23/20 20:42 Temperature 36.3 C L 03/23/20 20:42 Pulse Rate 102 H 03/24/20 00:28 Respiratory Rate 17 03/24/20 00:28 Blood Pressure 105/77 03/24/20 00:28 Pulse Oximetry 94 03/24/20 00:28 MDM - Abdominal Pain MDM Narrative Medical decision making narrative: Patient presenting for evaluation of abdominal distention and pain. At the time of asses
[2020-03-23 21:14] LABS: Alanine Aminotransferase 24 U/L (4-35); Albumin Level 2.5 g/dL (3.5-5.1); Alkaline Phosphatase 428 U/L (38-126); Anion Gap 7 mmol/L (8-16); Aspartate Amino Transferase 112 U/L (14-36); Blood Urea Nitrogen 7 mg/dL (7-17); Calcium 7.5 mg/dL (8.4-10.2); Carbon Dioxide 22 mmol/L (22-30); Chloride 101 mmol/L (98-107); Estimated CRCL calculation 113 ml/min; Estimated Glomerular Filt Rate > 60; Glucose 135 mg/dL (65-105); Lipase 244 U/L (23-300); Potassium 3.4 mmol/L (3.4-5.0); Sodium 130 mmol/L (137-145)
[2020-03-23 21:15] LABS: INR 1.7; Prothrombin Time 19.2 Seconds (11.1-14.7)
[2020-03-23 21:16] LABS: Partial Thromboplastin Time 33.7 SECONDS (22.3-36.8)
[2020-03-23 22:16] LABS: Add Urine Microscopic? YES; Appearance Urine Clear (Clear); Bacteria Urine Trace /hpf; Bilirubin Urine 2+ (Negative); Color Urine Amber (Yellow); Glucose Urine UA 1+ mg/dL (Negative); Ketones Urine Negative (Negative); Leukocyte Esterase Ur Trace LEU/UL (Negative); Mucus Urine Heavy /lpf; Nitrate Urine Negative (Negative); Protein Urine 2+ mg/dL (Negative); RBC Urine 0-2 /hpf (0-2); Squamous Epithelial Cell Urine Many /hpf (Few)
[2020-03-23 22:28] LABS: Blood Urine Negative (Negative)
[2020-03-23 23:32] VITALS: BP 114/84; PULSE 112; RESP 15; O2SAT 97
[2020-03-23] MEDS: MORPHINE SULFATE 4 MG/ML INJ IV PUSH (23:53)
[2020-03-24] VITALS (7 sets, daily range): BP systolic 92–132; BP diastolic 58–78; PULSE 91–105; RESP 14–18; TEMP 36.2–36.6; O2SAT 94–100; BMI 21.8
[2020-03-24 00:10] LABS: Lactic Acid Reflex 1.5 mmol/L (0.7-2.1)
--- NOTE | 2020-03-24 01:21 | ADMGEN ---
This patient, Nirmala Baker, was admitted to 2 Medical Room 242-. Patient/family oriented to hospital policies and general routines including ID bracelet, bed and alarms, visiting hours, pain management, procedures, bathroom and other care routines, personal items, smoking policy, room service/diet, and visiting hours. Valuables list has been completed. Information on how to activate the Rapid Response Team has been discussed. Patient/Family are encouraged to report perceived risks to care and to ask questions if they do not understand what they are told or what they should do.
[2020-03-24 04:53] LABS: Appearance Peritoneal Fluid Clear (Clear); Color Peritoneal Fluid Yellow (Colorless); Lymphocytes Peritoneal Fluid 43 %; Neutrophils Peritoneal Fluid 2 % (0-25); Nucleated Cells Peritoneal Flu 100 /uL (0-500); RBC Peritoneal Fluid 122 /uL (0-100000); Source Peritoneal Fluid Peritoneal Fluid
[2020-03-24 04:54] LABS: Macrophages Peritoneal Fluid 15 %; Mesothelial Cells Peritoneal Fluid 8 %; Monocytes Peritoneal Fluid 32 %
[2020-03-24] MEDS: ONDANSETRON INJ 4 MG/2 ML VIAL IV PUSH ×2 (05:22→20:48)
[2020-03-24] MEDS: MORPHINE SULFATE 4 MG/ML INJ IV PUSH ×2 (05:22→20:48)
[2020-03-24 10:25] LABS: Basophils Absolute Auto 0.1 K/mm3 (0.0-0.1); Basophils Percent Auto 0.6 % (0.2-1.2); Eosinophils Absolute Auto 0.2 K/mm3 (0-0.3); Eosinophils Percent Auto 1.5 % (0-4.4); Hematocrit 31.5 % (37.0-47.0); Hemoglobin 10.5 g/dL (12.0-15.0); Immature Granulocyte Absolute 0.06 K/mm3 (0.00-0.031); Immature Granulocyte Percent A 0.6 % (0-0.5); Lymphocytes Absolute Auto 1.47 K/mm3 (0.9-3.2); Lymphocytes Percent Auto 13.6 % (18.3-44.2); Mean Corpuscular HGB Conc 33.3 g/dl (32-36); Mean Platelet Volume 11.1 fl (7.4-10.4); Monocytes Absolute Auto 0.9 K/mm3 (0.1-0.6); Neutrophils Absolute Auto 8.2 K/mm3 (1.3-6.7); Neutrophils Percent Auto 75.7 % (45.5-73.1); Platelet Count Result 144 k/mm3 (150-375); Red Blood Count 3.28 M/mm3 (4.2-5.4); Red Cell Distribution Width 18.1 % (11.5-14.5); White Blood Count 10.8 K/mm3 (4.5-10.0)
[2020-03-24 10:44] LABS: Alanine Aminotransferase 20 U/L (4-35); Alkaline Phosphatase 336 U/L (38-126); Anion Gap 2 mmol/L (8-16); Aspartate Amino Transferase 86 U/L (14-36); Bilirubin,Total 3.3 mg/dL (0.2-1.3); Blood Urea Nitrogen 6 mg/dL (7-17); Calcium 7.4 mg/dL (8.4-10.2); Carbon Dioxide 25 mmol/L (22-30); Chloride 104 mmol/L (98-107); Estimated CRCL calculation 138 ml/min; Estimated Glomerular Filt Rate > 60; Glucose 79 mg/dL (65-105); Magnesium 1.8 mg/dL (1.6-2.3); Potassium 3.3 mmol/L (3.4-5.0); Sodium 131 mmol/L (137-145)
--- NOTE | 2020-03-24 11:21 | PM.IMHP ---
H&P: HPI History of Present Illness Chief complaint: Abdominal pain, distention Narrative: Date of Service 03/24/20 1030 The supervising physician for history and physical is Dr Arnie Espinoza. Ms. Baker is a 49yo F with history of anxiety, depression, and alcohol use disorder who presented to the ED for evaluation of abdominal distension and discomfort. She described that around 5 days ago, her abdomen was feeling a little bit bloated and distended but then it resolved. Three days ago, the bloating and distention returned and was worse. She report diffuse abdominal pain which she describes more as a ?pressure? discomfort from the distention. She denies any nausea or vomiting. Denies diarrhea, constipation, hematochezia, or melena. She denies any chest pain, shortness of breath, cough, or recent sick contacts. She believes she had a low-grade fever few days ago. Up until recently, she tells me she was drinking at least 5 alcoholic drinks daily. She was recently hospitalized 1 month ago 02/13/20 - 02/15/20 when she was diagnosed with alcoholic hepatitis. She was seen by Dr. Aguilar at that time and underwent MRCP which revealed hepatic steatosis. Total bilirubin was 10.3 during that admission, now improved to 3.3 today. She also has elevated AST and alk-phos which are both still elevated but improved today. Abdominal CT on arrival last night revealed large volume ascites that was not present 1 month ago, diffuse hepatic steatosis with hepatomegaly, possible cirrhosis, bibasilar atelectasis, small right pleural effusion. ED physician removed a small amount of ascitic fluid at the bedside for testing. Does have a mild leukocytosis and there was an initial concern for spontaneous bacterial peritonitis, so she was started on IV antibiotics and admitted to the hospitalist service. This morning she is withdrawn minimally cooperative for history and exam. Review of Systems Review of Systems: Narrative: Abdominal distension began around 5 days ago. Abdominal pain she describes as ?pressure? from bloating and distention, no localized pain. No nausea or vomiting. No chest pain or shortness of breath. Twelve systems were reviewed with pertinent positives and negatives as per HPI. Except as documented, all other systems were reviewed and are negative. [facility] Past Medical History Medical History (Updated 03/24/20 @ 15:59 by Michelle Mckeon PA-C) Anxiety Arm fracture, left Depression HTN (hypertension) Hypertension History of hypertension, she reports she was taken off blood pressure medications by her doctor and no longer takes them. Miscarriage Ovarian torsion Fixed with surgery UTI (urinary tract infection) Surgical History Surgical History (Updated 03/24/20 @ 15:46 by Michelle Mckeon PA-C) H/O left wrist surgery History of gynecologic surgery For ovarian torsion Family History Family History Father Gastric cancer Diabetes mellitus Family history of alcoholism Sibling Alcoholism Family history of alcoholism Mother Family history of alcoholism Social History Social History (Updated 03/24/20 @ 15:46 by Michelle Mckeon PA-C) Social History: The patient drinks equivalent of 10 drinks 4-5 days a week. She is no longer smoking but has the past history of smoking. She does not work. Her surrogate decision maker is her Marcelo Smoking packs per day: 0.15 Smoking cigarettes per day: 3.0 Years smoked: 6 Smoking pack-years: 0.90 Smoking status: Former smoker Tobacco type: cigarettes Second hand tobacco smoke exposure: No Additional smoking assessment comments: quit in 2018 Alcohol intake: current Drinks per week: 30 Substance use: never Substance use type: does not use Gender identity (if verbalized by the patient): Female Spiritual care concerns: No Meds Home Medications and Allergies Home
[2020-03-24] MEDS: LACTULOSE 20 GM/30 ML UDC 10 GM PO (14:17)
[2020-03-24] MEDS: FOLIC ACID 1 MG TABLET PO (14:18)
[2020-03-24] MEDS: HYDROCORTISONE ACETATE 25 MG SUPPOSITORY RECTAL (14:18)
[2020-03-24] MEDS: THIAMINE HCL 100 MG TABLET PO (14:18)
[2020-03-24] MEDS: ATORVASTATIN 10 MG TABLET PO (14:18)
[2020-03-24] MEDS: ESCITALOPRAM OXALATE 10 MG TABLET PO (14:18)
[2020-03-24] MEDS: POTASSIUM CHLORIDE 20 MEQ TABLET 40 MEQ PO (15:53)
[2020-03-25] MEDS: MORPHINE SULFATE 4 MG/ML INJ IV PUSH (04:23)
[2020-03-25] MEDS: ONDANSETRON INJ 4 MG/2 ML VIAL IV PUSH ×2 (04:24→20:01)
[2020-03-25 05:45] LABS: Basophils Percent Auto 0.3 % (0.2-1.2); Eosinophils Absolute Auto 0.2 K/mm3 (0-0.3); Hemoglobin 10.6 g/dL (12.0-15.0); Immature Granulocyte Absolute 0.03 K/mm3 (0.00-0.031); Immature Granulocyte Percent A 0.3 % (0-0.5); Lymphocytes Absolute Auto 1.15 K/mm3 (0.9-3.2); Lymphocytes Percent Auto 12.4 % (18.3-44.2); Mean Corpuscular HGB Conc 33.1 g/dl (32-36); Mean Corpuscular Hemoglobin 31.4 pg (26-34); Mean Corpuscular Volume 94.7 fl (80-100); Monocytes Absolute Auto 0.9 K/mm3 (0.1-0.6); Monocytes Percent Auto 9.4 % (2.6-8.5); Neutrophils Percent Auto 75.6 % (45.5-73.1); Platelet Count Result 145 k/mm3 (150-375); Red Blood Count 3.38 M/mm3 (4.2-5.4); Red Cell Distribution Width 18.6 % (11.5-14.5); White Blood Count 9.3 K/mm3 (4.5-10.0)
[2020-03-25 05:57] LABS: Alanine Aminotransferase 22 U/L (4-35); Albumin Level 2.2 g/dL (3.5-5.1); Alkaline Phosphatase 355 U/L (38-126); Anion Gap 6 mmol/L (8-16); Aspartate Amino Transferase 88 U/L (14-36); Bilirubin,Total 2.8 mg/dL (0.2-1.3); Blood Urea Nitrogen 5 mg/dL (7-17); Calcium 7.3 mg/dL (8.4-10.2); Carbon Dioxide 23 mmol/L (22-30); Chloride 100 mmol/L (98-107); Estimated CRCL calculation 113 ml/min; Estimated Glomerular Filt Rate > 60; Glucose 103 mg/dL (65-105); Magnesium 1.7 mg/dL (1.6-2.3); Potassium 3.6 mmol/L (3.4-5.0); Sodium 129 mmol/L (137-145)
[2020-03-25 06:00] VITALS: BP 114/74; PULSE 103; RESP 16; TEMP 36.3; O2SAT 97
[2020-03-25] MEDS: HYDROCORTISONE ACETATE 25 MG SUPPOSITORY RECTAL (09:02)
[2020-03-25] MEDS: FOLIC ACID 1 MG TABLET PO (09:02)
[2020-03-25] MEDS: ESCITALOPRAM OXALATE 10 MG TABLET PO (09:03)
[2020-03-25] MEDS: ATORVASTATIN 10 MG TABLET PO (09:03)
[2020-03-25] MEDS: LACTULOSE 20 GM/30 ML UDC 10 GM PO (09:03)
[2020-03-25] MEDS: THIAMINE HCL 100 MG TABLET PO (09:03)
[2020-03-25] MEDS: SPIRONOLACTONE 12.5 MG TABLET PO (09:03)
[2020-03-25] MEDS: MAGNESIUM OXIDE 400 MG TABLET PO (09:50)
[2020-03-25 14:00] VITALS: BP 110/70; PULSE 109; RESP 14; TEMP 36.6; O2SAT 98
[2020-03-25] MEDS: PANTOPRAZOLE 40 MG TABLET PO (14:54)
--- NOTE | 2020-03-25 14:55 | PM.IMPN ---
Progress Note: A&P Assessment and Plan (1) Ascites: Qualifiers: Ascites type: due to alcoholic hepatitis Qualified Code(s): K70.11 - Alcoholic hepatitis with ascites Code(s): R18.8 - Other ascites Status: Acute Assessment and Plan: Patient recently hospitalized for alcoholic hepatitis presents to the ED for evaluation of abdominal distention and discomfort. CT abdomen/pelvis showed hepatic steatosis, hepatomegaly, possibly cirrhosis with large volume ascites. Small amount of ascitic fluid was initially removed in the ED and sent for diagnostics. Gram stain is negative, prelim culture is negative, SBP not suspected and antibiotics discontinued. Subsequent full paracentesis was performed yesterday yielding 5000mL fluid. Abdomen distended again this afternoon. Low-sodium diet, will start spironolactone. Add IV lasix this afternoon. She saw Dr Aguilar during last admission. Originally planned for discharge today but patient is uncomfortable today with return of distension, also hyponatremic today. She is hopeful to stay overnight for monitoring and to see Dr Aguilar tomorrow. (2) Alcoholic hepatitis: Qualifiers: Ascites presence: with ascites Qualified Code(s): K70.11 - Alcoholic hepatitis with ascites Code(s): K70.10 - Alcoholic hepatitis without ascites Status: Acute Assessment and Plan: Recently diagnosed with alcoholic hepatitis 1 month ago when she was hospitalized here, suspect ascites is from same. Total bilirubin down to 2.8 from 10.3 during her last admission 1 month ago. ALT, alk-phos still elevated but also improved. One month ago viral hepatitis panel negative. TORITO positive. GGT elevated. (3) Alcohol abuse: Code(s): F10.10 - Alcohol abuse, uncomplicated Status: Acute Assessment and Plan: Patient reports her last drink was about 1 week ago. She has a history of drinking 5-10 drinks daily. She becomes tearful upon discussing this subject. She is motivated to quit drinking. (4) Leukocytosis: Qualifiers: Leukocytosis type: unspecified Qualified Code(s): D72.829 - Elevated white blood cell count, unspecified Code(s): D72.829 - Elevated white blood cell count, unspecified Status: Acute Assessment and Plan: Mild and resolved. May be secondary to stress reaction. SBP is less likely given the initial ascitic fluid analysis, nontender abdomen. Antibiotics have been stopped. Will monitor. (5) Hypokalemia: Code(s): E87.6 - Hypokalemia Status: Resolved Assessment and Plan: K stable at 3.6 today. Recheck in AM. (6) Anxiety: Code(s): F41.9 - Anxiety disorder, unspecified Status: Acute Assessment and Plan: Anxiety with depression; continue her home Lexapro and Xanax. Subjective Date/time seen: 03/25/20 1400 Interval history: Ms. Lancaster is a 49yo F admitted with alcoholic hepatitis and ascites. She had paracentesis yesterday and notes that her abdomen was much less distended and she was feeling improved after the tap, now her abdomen again this morning is bloated. She notes abdominal pressure discomfort associated with this, not localized pain per se. She has tolerated some oral intake without nausea or vomiting but does not have much of an appetite. Review of Systems Review of Systems: Narrative: Twelve systems were reviewed with pertinent positives and negatives as per HPI. Exam Narrative: Exam Narrative: General: Well-developed, thin female resting supine in bed in no acute distress. HEENT: Normocephalic, atraumatic, EOMI, oropharynx clear. Neck: Supple. Chest: Faint bibasilar rales, respirations are even a
[2020-03-25] MEDS: FUROSEMIDE INJ 40 MG/4 ML VIAL 20 MG IV PUSH (20:00)
[2020-03-25] MEDS: MORPHINE SULFATE 4 MG/ML INJ 2 MG IV PUSH (20:01)
[2020-03-25 21:56] VITALS: BP 116/75; PULSE 93; RESP 16; TEMP 36.8; O2SAT 98
[2020-03-26 05:43] VITALS: BP 111/59; PULSE 82; RESP 16; TEMP 36.8; O2SAT 96
[2020-03-26 06:00] LABS: Basophils Absolute Auto 0.1 K/mm3 (0.0-0.1); Basophils Percent Auto 0.6 % (0.2-1.2); Eosinophils Absolute Auto 0.2 K/mm3 (0-0.3); Eosinophils Percent Auto 1.9 % (0-4.4); Hematocrit 29.4 % (37.0-47.0); Hemoglobin 9.9 g/dL (12.0-15.0); Immature Granulocyte Absolute 0.04 K/mm3 (0.00-0.031); Immature Granulocyte Percent A 0.4 % (0-0.5); Immature Platelet Fraction Pct 8.2 % (0.9-11.2); Lymphocytes Absolute Auto 1.25 K/mm3 (0.9-3.2); Lymphocytes Percent Auto 13.5 % (18.3-44.2); Mean Corpuscular HGB Conc 33.7 g/dl (32-36); Mean Corpuscular Hemoglobin 31.9 pg (26-34); Mean Corpuscular Volume 94.8 fl (80-100); Mean Platelet Volume 10.9 fl (7.4-10.4); Monocytes Percent Auto 10.8 % (2.6-8.5); Neutrophils Absolute Auto 6.7 K/mm3 (1.3-6.7); Neutrophils Percent Auto 72.8 % (45.5-73.1); Platelet Count Result 132 k/mm3 (150-375); Red Cell Distribution Width 18.5 % (11.5-14.5); White Blood Count 9.3 K/mm3 (4.5-10.0)
[2020-03-26 06:19] LABS: Alanine Aminotransferase 19 U/L (4-35); Albumin Level 1.9 g/dL (3.5-5.1); Alkaline Phosphatase 309 U/L (38-126); Anion Gap 3 mmol/L (8-16); Aspartate Amino Transferase 90 U/L (14-36); Bilirubin,Total 2.4 mg/dL (0.2-1.3); Calcium 7.1 mg/dL (8.4-10.2); Carbon Dioxide 27 mmol/L (22-30); Chloride 101 mmol/L (98-107); Estimated CRCL calculation 112 ml/min; Estimated Glomerular Filt Rate > 60; Glucose 102 mg/dL (65-105); Magnesium 1.8 mg/dL (1.6-2.3); Potassium 3.2 mmol/L (3.4-5.0); Sodium 131 mmol/L (137-145)
[2020-03-26 07:17] LABS: Blood Urea Nitrogen < 2 mg/dL (7-17)
[2020-03-26] MEDS: POTASSIUM CHLORIDE 20 MEQ TABLET PO (08:24)
[2020-03-26] MEDS: FOLIC ACID 1 MG TABLET PO (08:25)
[2020-03-26] MEDS: ESCITALOPRAM OXALATE 10 MG TABLET PO (08:25)
[2020-03-26] MEDS: LACTULOSE 20 GM/30 ML UDC 10 GM PO (08:25)
[2020-03-26] MEDS: ATORVASTATIN 10 MG TABLET PO (08:25)
[2020-03-26] MEDS: SPIRONOLACTONE 12.5 MG TABLET PO (08:26)
[2020-03-26] MEDS: THIAMINE HCL 100 MG TABLET PO (08:26)
[2020-03-26] MEDS: MAGNESIUM OXIDE 400 MG TABLET PO (08:26)
[2020-03-26] MEDS: PANTOPRAZOLE 40 MG TABLET PO (08:26)
[2020-03-26] MEDS: HYDROCORTISONE ACETATE 25 MG SUPPOSITORY RECTAL (08:26)
[2020-03-26] MEDS: MORPHINE SULFATE 4 MG/ML INJ 2 MG IV PUSH ×2 (08:33→16:16)
--- NOTE | 2020-03-26 10:14 | PM.IMPN ---
Progress Note: A&P Assessment and Plan (1) Ascites: Qualifiers: Ascites type: due to alcoholic hepatitis Qualified Code(s): K70.11 - Alcoholic hepatitis with ascites Code(s): R18.8 - Other ascites Status: Acute Assessment and Plan: Patient recently hospitalized for alcoholic hepatitis presents to the ED for evaluation of abdominal distention and discomfort. CT abdomen/pelvis showed hepatic steatosis, hepatomegaly, possible cirrhosis with large volume ascites. Small amount of ascitic fluid was initially removed in the ED and sent for diagnostics. Gram stain is negative, prelim culture is negative, SBP not suspected and antibiotics discontinued. Subsequent full paracentesis was performed 03/25 yielding 5000mL fluid. Abdomen distended again following the tap. Low-sodium diet, started spironolactone. Add IV lasix again this afternoon. She saw Dr Aguilar during last admission - appreciate again his recommendations in this setting. (2) Alcoholic hepatitis: Qualifiers: Ascites presence: with ascites Qualified Code(s): K70.11 - Alcoholic hepatitis with ascites Code(s): K70.10 - Alcoholic hepatitis without ascites Status: Acute Assessment and Plan: Recently diagnosed with alcoholic hepatitis 1 month ago when she was hospitalized here, suspect ascites is from same. Total bilirubin down to 2.4 from 10.3 during her last admission 1 month ago. ALT, alk-phos still elevated but also improved. One month ago viral hepatitis panel negative. TORITO positive. GGT elevated. (3) Alcohol abuse: Code(s): F10.10 - Alcohol abuse, uncomplicated Status: Acute Assessment and Plan: Patient reports her last drink was about 1 week ago. She has a history of drinking 5-10 drinks daily. She becomes tearful upon discussing this subject. She is motivated to quit drinking. (4) Leukocytosis: Qualifiers: Leukocytosis type: unspecified Qualified Code(s): D72.829 - Elevated white blood cell count, unspecified Code(s): D72.829 - Elevated white blood cell count, unspecified Status: Acute Assessment and Plan: Mild and resolved. May be secondary to stress reaction. SBP is less likely given the initial ascitic fluid analysis, nontender abdomen. Antibiotics have been stopped. Will monitor. (5) Hypokalemia: Code(s): E87.6 - Hypokalemia Status: Resolved Assessment and Plan: K 3.2 this morning and replaced. Recheck in AM. (6) Pleural effusion: Code(s): J90 - Pleural effusion, not elsewhere classified Status: Acute Assessment and Plan: Small right pleural effusion noted on imaging. Continue spironolactone, lasix. Obtain chest XR to reevaluated. No respiratory distress. (7) Hyponatremia: Code(s): E87.1 - Hypo-osmolality and hyponatremia Status: Acute Assessment and Plan: Up to 131 today. Will continue to monitor especially given her need for diuresis. (8) Anxiety: Code(s): F41.9 - Anxiety disorder, unspecified Status: Acute Assessment and Plan: Anxiety with depression; continue her home Lexapro and Xanax. Subjective Date/time seen: 08/17/20 0900 Interval history: Ms. Lancaster is a 49yo F admitted with alcoholic hepatitis and ascites. She had paracentesis 03/24 and notes that her abdomen was much less distended and she was feeling improved after the tap, now her abdomen again is distended. She notes abdominal pressure discomfort associated with this, not localized pain per se. She has tolerated some oral intake without nausea or vomiting but
--- NOTE | 2020-03-26 12:29 | WPDGICN ---
Assessment and Plan Assessment and plan (1) Alcoholic hepatitis: Qualifiers: Ascites presence: with ascites Qualified Code(s): K70.11 - Alcoholic hepatitis with ascites Code(s): K70.10 - Alcoholic hepatitis without ascites Status: Acute Assessment and Plan: Patient with recent hospital stay for alcoholic hepatitis. LFTs gradually resolving. Patient had recidivism and has begun to drink alcohol again alcohol avoidance will need to be reinforced. (2) Cirrhosis: Code(s): K74.60 - Unspecified cirrhosis of liver Status: Acute Assessment and Plan: There is a suspicion of cirrhosis by CT scan. Alcoholism certainly a suspect. Alpha fetoprotein level will be obtained. Patient definitely has signs of alcoholic liver disease. (3) Positive TORITO (antinuclear antibody): Code(s): R76.8 - Other specified abnormal immunological findings in serum Status: Acute Assessment and Plan: Elevated TORITO of certain uncertain significance. Autoimmune hepatitis a consideration. Unable to do biopsy with current degree of ascites. Consider this in the future. (4) Alcohol abuse: Code(s): F10.10 - Alcohol abuse, uncomplicated Status: Acute (5) Ascites: Qualifiers: Ascites type: due to alcoholic hepatitis Qualified Code(s): K70.11 - Alcoholic hepatitis with ascites Code(s): R18.8 - Other ascites Status: Acute Assessment and Plan: New onset ascites. Patient now status post paracentesis. No obvious signs of SBP. Plan is to await cultures and findings from the paracentesis. Start low-salt diet. Diuresis while monitoring electrolytes and daily weights. She will being need to be followed my office several weeks after discharge to continue monitoring her diuretics. GI Consult Note Consult date/time: 03/26/20 12:29 HPI: Nirmala Baker is a 49 year old female Seen in evaluation at the request of the hospitalist service. Patient known to my service from hospital stay 1 month ago with severe jaundice. Patient has a known history of alcoholic liver disease. She drinks rather heavily. After recent hospital stay she abstain from alcohol for 2 weeks until she went on a binge. She subsequently noticed abdominal distention. For this reason presented to the hospital emergency room. Patient denies any abdominal pain although she feels pressure in the abdomen. She denies any fever. She has had no evidence for bleeding. Her weight is essentially normal. She denies pedal edema. Review of Systems Review of Systems: All systems reviewed & are unremarkable except as noted in HPI and below PMFSH Past Medical History Medical History Anxiety Arm fracture, left Depression HTN (hypertension) Hypertension History of hypertension, she reports she was taken off blood pressure medications by her doctor and no longer takes them. Miscarriage Ovarian torsion Fixed with surgery UTI (urinary tract infection) Surgical History Surgical History H/O left wrist surgery History of gynecologic surgery For ovarian torsion Family History Family History Father Gastric cancer Diabetes mellitus Family history of alcoholism Sibling Alcoholism Family history of alcoholism Mother Family history of alcoholism Social History Social History Social History: The patient drinks equivalent of 10 drinks 4-5 days a week. She is no longer smoking but has the past history of smoking. She does not work. Her surrogate decision maker is her Marcelo Smoking packs per day: 0.15 Smoking cigarettes per day: 3.0 Years smoked: 6 Smoking pack-years: 0.90 Smoking status: Former smoker Tobacco type: cigarettes Second espinosa
[2020-03-26 14:00] VITALS: BP 102/63; PULSE 86; RESP 14; TEMP 36.6; O2SAT 99
[2020-03-26 14:12] LABS: Bilirubin Direct 0.1 mg/dL (0-0.3); Bilirubin Indirect 1.2 mg/dL (0-1.1); Bilirubin,Total 2.8 mg/dL (0.2-1.3)
[2020-03-26] MEDS: FUROSEMIDE INJ 40 MG/4 ML VIAL 20 MG IV PUSH (15:39)
[2020-03-26 22:00] VITALS: BP 108/71; PULSE 82; RESP 21; TEMP 36.6; O2SAT 100
[2020-03-27 05:54] LABS: Basophils Absolute Auto 0.1 K/mm3 (0.0-0.1); Basophils Percent Auto 0.6 % (0.2-1.2); Eosinophils Absolute Auto 0.2 K/mm3 (0-0.3); Eosinophils Percent Auto 1.5 % (0-4.4); Hematocrit 29.4 % (37.0-47.0); Hemoglobin 10.1 g/dL (12.0-15.0); Immature Granulocyte Absolute 0.05 K/mm3 (0.00-0.031); Immature Granulocyte Percent A 0.5 % (0-0.5); Lymphocytes Absolute Auto 1.47 K/mm3 (0.9-3.2); Lymphocytes Percent Auto 14.7 % (18.3-44.2); Mean Corpuscular HGB Conc 34.4 g/dl (32-36); Mean Corpuscular Hemoglobin 32.2 pg (26-34); Mean Corpuscular Volume 93.6 fl (80-100); Monocytes Absolute Auto 1.1 K/mm3 (0.1-0.6); Monocytes Percent Auto 10.7 % (2.6-8.5); Neutrophils Absolute Auto 7.2 K/mm3 (1.3-6.7); Platelet Count Result 141 k/mm3 (150-375); Red Blood Count 3.14 M/mm3 (4.2-5.4); Red Cell Distribution Width 18.4 % (11.5-14.5)
[2020-03-27 06:00] VITALS: BP 103/62; PULSE 89; RESP 21; TEMP 36.4; O2SAT 100
[2020-03-27 06:12] LABS: Alanine Aminotransferase 19 U/L (4-35); Albumin Level 1.9 g/dL (3.5-5.1); Alkaline Phosphatase 350 U/L (38-126); Anion Gap 0 mmol/L (8-16); Aspartate Amino Transferase 89 U/L (14-36); Bilirubin,Total 2.3 mg/dL (0.2-1.3); Calcium 7.3 mg/dL (8.4-10.2); Carbon Dioxide 29 mmol/L (22-30); Chloride 102 mmol/L (98-107); Estimated CRCL calculation 136 ml/min; Estimated Glomerular Filt Rate > 60; Glucose 77 mg/dL (65-105); Magnesium 1.8 mg/dL (1.6-2.3); Potassium 3.3 mmol/L (3.4-5.0); Sodium 131 mmol/L (137-145)
[2020-03-27 06:34] LABS: Blood Urea Nitrogen < 2 mg/dL (7-17)
[2020-03-27] MEDS: MORPHINE SULFATE 4 MG/ML INJ 2 MG IV PUSH (09:23)
--- NOTE | 2020-03-27 09:27 | WPDGIPROGNO ---
Progress Note: A&P Additional Plan Patient feels good today. Tolerating diet. Still notices abdominal distention. Good diuresis reported. Physical exam reveals Vital Signs to be stable. HEENT exam unremarkable. Lungs are clear. Heart without murmur. Abdomen soft nontender modest distention noted. Some safety dullness appreciated. No organomegaly palpable. Extremities are without clubbing cyanosis or edema. Impression 1. Ascites. Secondary to the underlying alcoholic liver disease presumed to be cirrhosis. Plan is to continue diuresis after discharge. Aldactone and Lasix combination suggested. Monitor electrolytes after discharge BMP in 1 week. 2 g sodium diet advised. Daily weights are encouraged to be monitored. Follow-up electively in the office in 2 weeks. 2. Alcoholic liver disease presumed to be cirrhosis because of ascites. Continued alcohol avoidance is strongly encourage. Support group likely to be of some benefit. Subjective Date/time seen: 03/27/20 09:27 Objective Data Vital Signs Vital Signs: Vital Signs - 24 hr 03/26/20 14:00 03/26/20 22:00 03/27/20 06:00 Temperature 97.9 F 97.9 F 97.6 F Pulse Rate 86 82 89 Respiratory Rate 14 21 H 21 H Blood Pressure 102/63 108/71 103/62 Pulse Oximetry 99 100 100 Intake/Output Intake/Output: Intake & Output 03/24/20 03/25/20 03/26/20 03/27/20 23:59 23:59 23:59 23:59 Intake Total 880 1390 2010 1240 Output Total 6400 1300 1850 1650 Balance -5520 90 160 -410 Meds/Results Medications: Active Medications Generic Name Dose Route Start Last Admin Trade Name Freq PRN Reason Stop Dose Admin Alprazolam 0.25 mg 03/24/20 12:51 Xanax PO TID PRN anxiety Atorvastatin Calcium 10 mg 03/24/20 12:55 03/26/20 08:25 Lipitor PO 10 mg DAILY EUGENIE Administration Escitalopram Oxalate 10 mg 03/24/20 12:55 03/26/20 08:25 Lexapro PO 10 mg DAILY EUGENIE Administration Folic Acid 1 mg 03/24/20 12:55 03/26/20 08:25 Folic Acid PO 1 mg DAILY EUGENIE Administration Hydrocortisone Acetate 25 mg 03/24/20 12:55 03/26/20 08:26 Anusol-Hc Suppository RECTAL 25 mg DAILY EUGENIE Administration Ibuprofen 600 mg 03/25/20 14:12 Motrin PO Q6H PRN Pain Rated 1-3 Lactulose 10 gm 03/24/20 09:00 03/26/20 08:25 Lactulose PO 10 gm QAM EUGENIE Administration Magnesium Oxide 400 mg 03/25/20 09:00 03/26/20 08:26 Mag-Ox PO 400 mg QAM EUGENIE Administration Morphine Sulfate 2 mg 03/25/20 14:14 03/26/20 16:16 Morphine Sulfate Inj IV PUSH 2 mg Q6H PRN Administration Pain Rated 7-10 Ondansetron HCl 4 mg 03/24/20 00:27 03/25/20 20:01 Zofran Inj IV PUSH 4 mg Q4H PRN Administration Nausea Pantoprazole Sodium 40 mg 03/26/20 09:00 03/26/20 08:26 Protonix PO 40 mg QAM EUGENIE Administration Spironolactone 12.5 mg 03/25/20 09:00 03/26/20 08:26 Aldactone PO 12.5 mg QAM EUGENIE Administration Thiamine HCl 100 mg 03/24/20 12:55 03/26/20 08:26 Vitamin B-1 PO 100 mg DAILY EUGENIE Administration Tramadol HCl 25 mg 03/25/20 14:12 03/26/20 21:58 Ultram PO 25 mg Q6H PRN Administration Pain Rated 4-6 Radiology Results: ITS Impressions Abdomen/Pelvis CT 03/23/20 22:42 IMPRESSION: 1. Hepatic steatosis, hepatomegaly, possible cirrhosis. 2. Large amount of ascites. 3. Bibasilar atelectasis, multi segmental on the right. 4. Small right pleural effusion. 5. Fibroids. Paracentesis Ultrasound 03/24/20 11:56 IMPRESSION: 1. Successful ultrasound-guided paracentesis yielding 5000 mL of cloudy, yellow fluid. Chest X-Ray 03/26/20 17:03 IMPRESSION: 1. Small right pleural effusion, stable. 2. Right basilar airspace opacities, likely with atelectasis. Labs Labs: Laboratory Results - last 24 hr 03/26/20 03/27/20 03/27/20 13:53 05:16 05:16 WBC 10.0 RBC 3.14 L Hgb 10.1 L Hct 29.4 L MCV 93.6
[2020-03-27] MEDS: ESCITALOPRAM OXALATE 10 MG TABLET PO (09:29)
[2020-03-27] MEDS: HYDROCORTISONE ACETATE 25 MG SUPPOSITORY RECTAL (09:29)
[2020-03-27] MEDS: FOLIC ACID 1 MG TABLET PO (09:29)
[2020-03-27] MEDS: THIAMINE HCL 100 MG TABLET PO (09:29)
[2020-03-27] MEDS: PANTOPRAZOLE 40 MG TABLET PO (09:29)
[2020-03-27] MEDS: ATORVASTATIN 10 MG TABLET PO (09:29)
[2020-03-27] MEDS: LACTULOSE 20 GM/30 ML UDC 10 GM PO (09:29)
[2020-03-27] MEDS: MAGNESIUM OXIDE 400 MG TABLET PO (09:29)
[2020-03-27] MEDS: SPIRONOLACTONE 12.5 MG TABLET PO (09:29)
[2020-03-27] MEDS: POTASSIUM CHLORIDE 20 MEQ TABLET 40 MEQ PO (10:37)
--- NOTE | 2020-03-27 13:00 | PM.IMPN ---
Progress Note: A&P Assessment and Plan (1) Ascites: Qualifiers: Ascites type: due to alcoholic hepatitis Qualified Code(s): K70.11 - Alcoholic hepatitis with ascites Code(s): R18.8 - Other ascites Status: Acute Assessment and Plan: -----Patient recently hospitalized for alcoholic hepatitis presents to the ED for evaluation of abdominal distention and discomfort. She has mostly stayed away from alcohol but had a few days where she drank all day. CT abdomen/pelvis showed hepatic steatosis, hepatomegaly, possible cirrhosis with large volume ascites. She had a paracentesis 03/25 which yielded 5,000 ml of fluid. Gram stain is negative so far and cell count looks normal. No signs of malignancy on cytology. Continue spironolactone and lasix with a low salt diet and fluid restriction. (2) Alcoholic hepatitis: Qualifiers: Ascites presence: with ascites Qualified Code(s): K70.11 - Alcoholic hepatitis with ascites Code(s): K70.10 - Alcoholic hepatitis without ascites Status: Acute Assessment and Plan: ----Recently diagnosed with alcoholic hepatitis 1 month ago when she was hospitalized here, suspect ascites is from same. Total bilirubin down to 2.3 from 10.3 during her last admission 1 month ago. ALT, alk-phos still elevated but also improved. One month ago viral hepatitis panel negative. TORITO positive. GGT elevated. (3) Alcohol abuse: Code(s): F10.10 - Alcohol abuse, uncomplicated Status: Acute Assessment and Plan: -----Patient reports her last drink was about 1 week ago. She has a history of drinking 5-10 drinks daily. She becomes tearful upon discussing this subject. She is motivated to quit drinking. (4) Leukocytosis: Qualifiers: Leukocytosis type: unspecified Qualified Code(s): D72.829 - Elevated white blood cell count, unspecified Code(s): D72.829 - Elevated white blood cell count, unspecified Status: Acute Assessment and Plan: -----resolved. May be secondary to stress reaction. SBP is less likely given the initial ascitic fluid analysis, nontender abdomen. Antibiotics have been stopped. Will monitor. (5) Hypokalemia: Code(s): E87.6 - Hypokalemia Status: Resolved Assessment and Plan: -----Persistently low, will worsen on lasix. Will start daily potassiums and check mag. (6) Pleural effusion: Code(s): J90 - Pleural effusion, not elsewhere classified Status: Acute Assessment and Plan: ----Small right pleural effusion noted on imaging. Continue spironolactone, lasix (7) Hyponatremia: Code(s): E87.1 - Hypo-osmolality and hyponatremia Status: Acute Assessment and Plan: -----Up to 131 today. Will continue to monitor especially given her need for diuresis. _ (8) Anxiety: Code(s): F41.9 - Anxiety disorder, unspecified Status: Acute Assessment and Plan: ----Anxiety with depression; continue her home Lexapro and Xanax. (9) Elevated antinuclear antibody (TORITO) level: Code(s): R76.8 - Other specified abnormal immunological findings in serum Status: Acute Assessment and Plan: -----exceptionally high, will need to follow up with a automotive maintenance technician. I spoke with Dr. Aguilar who suggest repeating it 1st before any additional testing. Time Spent With Patient Time with patient: 25 - 35 minutes Subjective Date/time seen: 03/27/20 13:00 Interval history: Pt is a 49-year-old female here for new onset ascites with a history of alcohol abuse. Patient was seen today and states she still feels full. She cannot really lay flat and feels more comfortable on her stride. We talked about a low-salt diet and fluid restriction. She understands the importance of adhering to no alcohol. I spoke with her about her positive TORITO and she said she talked to her primary care physician about that and there
[2020-03-27 14:00] VITALS: BP 94/53; PULSE 79; RESP 18; TEMP 36.3; O2SAT 98
[2020-03-27] MEDS: FUROSEMIDE 40 MG TABLET PO (15:15)
[2020-03-27 22:00] VITALS: BP 101/82; PULSE 88; RESP 21; TEMP 36.2; O2SAT 100
[2020-03-28 01:24] LABS: Amylase Peritoneal Fluid <10 U/L
[2020-03-28 05:32] LABS: Glucose Peritoneal Fluid 118 mg/dL; LDH Peritoneal Fluid 45 U/L (<63); Total Protein Peritoneal Fluid <3.0 g/dL
[2020-03-28 06:00] VITALS: BP 102/61; PULSE 87; RESP 21; TEMP 36.8; O2SAT 100
[2020-03-28 06:01] LABS: Alanine Aminotransferase 21 U/L (4-35); Alkaline Phosphatase 381 U/L (38-126); Anion Gap 3 mmol/L (8-16); Aspartate Amino Transferase 93 U/L (14-36); Bilirubin,Total 2.3 mg/dL (0.2-1.3); Blood Urea Nitrogen 2 mg/dL (7-17); Calcium 7.1 mg/dL (8.4-10.2); Carbon Dioxide 28 mmol/L (22-30); Chloride 100 mmol/L (98-107); Estimated CRCL calculation 138 ml/min; Estimated Glomerular Filt Rate > 60; Glucose 77 mg/dL (65-105); Magnesium 1.7 mg/dL (1.6-2.3); Sodium 131 mmol/L (137-145)
[2020-03-28] MEDS: MORPHINE SULFATE 4 MG/ML INJ 2 MG IV PUSH (06:50)
[2020-03-28] MEDS: FUROSEMIDE 40 MG TABLET PO (08:57)
[2020-03-28] MEDS: MAGNESIUM OXIDE 400 MG TABLET PO (08:57)
[2020-03-28] MEDS: HYDROCORTISONE ACETATE 25 MG SUPPOSITORY RECTAL (08:57)
[2020-03-28] MEDS: ATORVASTATIN 10 MG TABLET PO (08:57)
[2020-03-28] MEDS: POTASSIUM CHLORIDE 20 MEQ TABLET.ER PO ×2 (08:57→17:00)
[2020-03-28] MEDS: LACTULOSE 20 GM/30 ML UDC 10 GM PO (08:57)
[2020-03-28] MEDS: ESCITALOPRAM OXALATE 10 MG TABLET PO (08:57)
[2020-03-28] MEDS: FOLIC ACID 1 MG TABLET PO (08:58)
[2020-03-28] MEDS: SPIRONOLACTONE 25 MG TABLET PO ×2 (08:58→17:00)
[2020-03-28] MEDS: PANTOPRAZOLE 40 MG TABLET PO (08:58)
[2020-03-28] MEDS: THIAMINE HCL 100 MG TABLET PO (08:58)
[2020-03-28] MEDS: MAGNESIUM SULF 1 GM/D5W 100 ML 1 GM/100 ML BAG IVPB (08:59)
--- NOTE | 2020-03-28 10:26 | WPDGIPROGNO ---
Progress Note: A&P Additional Plan Patient alert and comfortable this morning. She still feels the abdominal girth. Good diuresis described. Physical exam reveals her to be alert. Vital signs stable. HEENT exam unremarkable. No icterus noted. Lungs are clear. Heart without murmur. Abdomen modestly distended. With some shifting dullness. Extremities are without clubbing cyanosis or edema. Impression 1. Ascites. Related to underlying alcoholic liver disease and presumed cirrhosis. Plan is to continue low-salt diet. Aldactone dose increased. Lasix to continue. Continue to monitor electrolytes after discharge. Daily weights are encourage. Alcohol abstinence encouraged. 2. Alcoholic liver disease with probable underlying cirrhosis. Continue supportive care. Plan to follow as an outpatient. Hopefully discharge today. 3. Elevated TORITO titer. This was noted on previous admission. It is uncertain if this relates to underlying liver disease. Plan is to repeat the TORITO titer. Continued outpatient follow-up. Liver biopsy will be deferred until ascites resolved. It may be beneficial in the future to exclude autoimmune hepatitis. Subjective Date/time seen: 03/28/20 10:26 Objective Data Vital Signs Vital Signs: Vital Signs - 24 hr 03/27/20 14:00 03/27/20 22:00 03/28/20 06:00 Temperature 97.3 F L 97.1 F L 98.3 F Pulse Rate 79 88 87 Respiratory Rate 18 21 H 21 H Blood Pressure 94/53 L 101/82 102/61 Pulse Oximetry 98 100 100 Intake/Output Intake/Output: Intake & Output 03/25/20 03/26/20 03/27/20 03/28/20 23:59 23:59 23:59 23:59 Intake Total 1390 2009 1655 540 Output Total 1300 1850 1999 650 Balance 90 160 -345 -110 Meds/Results Medications: Active Medications Generic Name Dose Route Start Last Admin Trade Name Freq PRN Reason Stop Dose Admin Alprazolam 0.25 mg 03/24/20 12:51 Xanax PO TID PRN anxiety Atorvastatin Calcium 10 mg 03/24/20 12:55 03/28/20 08:57 Lipitor PO 10 mg DAILY EUGENIE Administration Escitalopram Oxalate 10 mg 03/24/20 12:55 03/28/20 08:57 Lexapro PO 10 mg DAILY EUGENIE Administration Folic Acid 1 mg 03/24/20 12:55 03/28/20 08:58 Folic Acid PO 1 mg DAILY EUGENIE Administration Furosemide 40 mg 03/27/20 13:00 03/28/20 08:57 Lasix Tablet PO 40 mg DAILY EUGENIE Administration Hydrocortisone Acetate 25 mg 03/24/20 12:55 03/28/20 08:57 Anusol-Hc Suppository RECTAL 25 mg DAILY EUGENIE Administration Ibuprofen 600 mg 03/25/20 14:12 Motrin PO Q6H PRN Pain Rated 1-3 Lactulose 10 gm 03/24/20 09:00 03/28/20 08:57 Lactulose PO 10 gm QAM EUGENIE Administration Magnesium Oxide 400 mg 03/25/20 09:00 03/28/20 08:57 Mag-Ox PO 400 mg QAM [facility] Administration Morphine Sulfate 2 mg 03/25/20 14:14 03/28/20 06:50 Morphine Sulfate Inj IV PUSH 2 mg Q6H PRN Administration Pain Rated 7-10 Ondansetron HCl 4 mg 03/24/20 00:27 03/25/20 20:01 Zofran Inj IV PUSH 4 mg Q4H PRN Administration Nausea Pantoprazole Sodium 40 mg 03/26/20 09:00 03/28/20 08:58 Protonix PO 40 mg QAM [facility] Administration Potassium Chloride 20 meq 03/28/20 09:00 03/28/20 08:57 Kcl Tablet PO 20 meq BIDWM EUGENIE Administration Spironolactone 25 mg 03/28/20 09:00 03/28/20 08:58 Aldactone PO 25 mg BID EUGENIE Administration Thiamine HCl 100 mg 03/24/20 12:55 03/28/20 08:58 Vitamin B-1 PO 100 mg DAILY EUGENIE Administration Tramadol HCl 25 mg 03/25/20 14:12 03/27/20 20:02 Ultram PO 25 mg Q6H PRN Administration Pain Rated 4-6 Radiology Results: ITS Impressions Abdomen/Pelvis CT 03/23/20 22:42 IMPRESSION: 1. Hepatic steatosis, hepatomegaly, possible cirrhosis. 2. Large amount of ascites. 3. Bibasilar atelectasis, multi segmental on the right. 4. Small right pleural effusion. 5. Fibroids. Paracentesis Ultrasound 03/24/20 11:56
--- NOTE | 2020-03-28 11:44 | PM.IMPN ---
Progress Note: A&P Assessment and Plan (1) Ascites: Qualifiers: Ascites type: due to alcoholic hepatitis Qualified Code(s): K70.11 - Alcoholic hepatitis with ascites Code(s): R18.8 - Other ascites Status: Acute Assessment and Plan: -----Continue diuretics at this time. If she has not had improvement by tomorrow, may either switch to IV or increase spironolactone to 50mg BID. She was recently hospitalized for alcoholic hepatitis. She has mostly stayed away from alcohol but had a few days where she drank all day. CT abdomen/pelvis showed hepatic steatosis, hepatomegaly, possible cirrhosis with large volume ascites. She had a paracentesis 03/25 which yielded 5,000 ml of fluid. Gram stain is negative so far and cell count looks normal. No signs of malignancy on cytology. Continue spironolactone and lasix with a low salt diet and fluid restriction. (2) Alcoholic hepatitis: Qualifiers: Ascites presence: with ascites Qualified Code(s): K70.11 - Alcoholic hepatitis with ascites Code(s): K70.10 - Alcoholic hepatitis without ascites Status: Acute Assessment and Plan: ----Recently diagnosed with alcoholic hepatitis 1 month ago when she was hospitalized here, suspect ascites is from same. Total bilirubin down to 2.3 from 10.3 during her last admission 1 month ago. ALT, alk-phos still elevated but also improved. One month ago viral hepatitis panel negative. TORITO positive. GGT elevated. (3) Alcohol abuse: Code(s): F10.10 - Alcohol abuse, uncomplicated Status: Acute Assessment and Plan: -----Patient reports her last drink was about 1 week ago. She has a history of drinking 5-10 drinks daily. She becomes tearful upon discussing this subject. She is motivated to quit drinking. (4) Leukocytosis: Qualifiers: Leukocytosis type: unspecified Qualified Code(s): D72.829 - Elevated white blood cell count, unspecified Code(s): D72.829 - Elevated white blood cell count, unspecified Status: Acute Assessment and Plan: -----resolved. May be secondary to stress reaction. SBP is less likely given the initial ascitic fluid analysis, nontender abdomen. Antibiotics have been stopped. Will monitor. (5) Hypokalemia: Code(s): E87.6 - Hypokalemia Status: Resolved Assessment and Plan: -----Persistently low, will worsen on lasix. Continue daily potassium and mag. (6) Pleural effusion: Code(s): J90 - Pleural effusion, not elsewhere classified Status: Acute Assessment and Plan: ----Small right pleural effusion noted on imaging. Continue spironolactone, lasix (7) Hyponatremia: Code(s): E87.1 - Hypo-osmolality and hyponatremia Status: Acute Assessment and Plan: -----Up to 131 today. Will continue to monitor especially given her need for diuresis. _ (8) Anxiety: Code(s): F41.9 - Anxiety disorder, unspecified Status: Acute Assessment and Plan: ----Anxiety with depression; continue her home Lexapro and Xanax. (9) Elevated antinuclear antibody (TORITO) level: Code(s): R76.8 - Other specified abnormal immunological findings in serum Status: Acute Assessment and Plan: -----exceptionally high, will need to follow up with a chef de cuisine. I spoke with Dr. Aguilar who suggest repeating it 1st before any additional testing. Subjective Date/time seen: 03/28/20 11:44 Interval history: Pt is a 49-year-old female here for new onset ascites with a history of alcohol abuse. Patient was seen today and states she still feels full and actually worse than yesterday. She is eating and drinking well with no n/v/d. Exam Narrative: Exam Narrative: General: Well-developed female resting in bed in NAD HEENT: Normocephalic, atraumatic, EOMI, oropharynx clear. Neck: Supple. Chest: CTA Heart: Rate and rhythm regular w
[2020-03-28 14:00] VITALS: BP 94/55; PULSE 75; RESP 12; TEMP 36.6; O2SAT 98
[2020-03-28 20:00] VITALS: BP 98/57; PULSE 77; RESP 18; TEMP 36.7; O2SAT 97
[2020-03-29 04:00] VITALS: BP 96/50; PULSE 78; RESP 18; TEMP 36.8; O2SAT 97
[2020-03-29 06:09] LABS: Anion Gap 3 mmol/L (8-16); Blood Urea Nitrogen 3 mg/dL (7-17); Calcium 7.4 mg/dL (8.4-10.2); Carbon Dioxide 28 mmol/L (22-30); Chloride 100 mmol/L (98-107); Estimated CRCL calculation 130 ml/min; Estimated Glomerular Filt Rate > 60; Glucose 96 mg/dL (65-105); Potassium 3.3 mmol/L (3.4-5.0); Sodium 131 mmol/L (137-145)
[2020-03-29 07:01] LABS: Albumin Peritoneal Fluid 0.5 g/dL
--- NOTE | 2020-03-29 08:04 | WPDGIPROGNO ---
Progress Note: A&P Additional Plan patient appears comfortable at rest. Tolerating diet. No abdominal pain. Physical exam reveals her to be alert. Vital signs with blood pressure 96 systolic. HEENT exam she is anicteric. Lungs are clear. Heart without murmur. Abdomen modestly distended with no organomegaly evident. Rectal exam is deferred at this time. Labs reveal sodium 131, potassium 3.3, BUN 3, creatinine 0.4. Impression 1. Alcoholic liver disease. Presumed cirrhosis. Plan is for continued alcohol avoidance. 2. Ascites. Patient with modest diuresis noted at this time period decline in blood pressure noted. Would plan is to increase Aldactone and hopefully decrease Lasix. Continue monitor electrolytes after discharge. Note that with combination of Lasix and Aldactone potassium may need to be decreased in the future. Continue 2 g sodium diet. 3. Elevated antinuclear antibody. Follow-up testing pending. We will need to consider liver biopsy to exclude autoimmune hepatitis when ascites has resolved. Plan is for discharge with outpatient follow-up in 2-3 weeks. Subjective Date/time seen: 03/29/20 08:04 Objective Data Vital Signs Vital Signs: Vital Signs - 24 hr 03/28/20 14:00 03/28/20 20:00 03/29/20 04:00 Temperature 98 F 98.1 F 98.3 F Pulse Rate 75 77 78 Respiratory Rate 12 18 18 Blood Pressure 94/55 L 98/57 L 96/50 L Pulse Oximetry 98 97 97 Intake/Output Intake/Output: Intake & Output 03/26/20 03/27/20 03/28/20 03/29/20 23:59 23:59 23:59 23:59 Intake Total 2009 165 1420 150 Output Total 1850 1999 1675 400 Balance 160 -246 -255 -971 Meds/Results Medications: Active Medications Generic Name Dose Route Start Last Admin Trade Name Freq PRN Reason Stop Dose Admin Alprazolam 0.25 mg 03/24/20 12:51 Xanax PO TID PRN anxiety Atorvastatin Calcium 10 mg 03/24/20 12:55 03/28/20 08:57 Lipitor PO 10 mg DAILY EUGENIE Administration Escitalopram Oxalate 10 mg 03/24/20 12:55 03/28/20 08:57 Lexapro PO 10 mg DAILY EUGENIE Administration Folic Acid 1 mg 03/24/20 12:55 03/28/20 08:58 Folic Acid PO 1 mg DAILY EUGENIE Administration Furosemide 40 mg 03/27/20 13:00 03/28/20 08:57 Lasix Tablet PO 40 mg DAILY EUGENIE Administration Hydrocortisone Acetate 25 mg 03/24/20 12:55 03/28/20 08:57 Anusol-Hc Suppository RECTAL 25 mg DAILY EUGENIE Administration Ibuprofen 600 mg 03/25/20 14:12 Motrin PO Q6H PRN Pain Rated 1-3 Lactulose 10 gm 03/24/20 09:00 03/28/20 08:57 Lactulose PO 10 gm QAM EUGENIE Administration Magnesium Oxide 400 mg 03/25/20 09:00 03/28/20 08:57 Mag-Ox PO 400 mg QAM [facility] Administration Morphine Sulfate 2 mg 03/25/20 14:14 03/28/20 06:50 Morphine Sulfate Inj IV PUSH 2 mg Q6H PRN Administration Pain Rated 7-10 Ondansetron HCl 4 mg 03/24/20 00:27 03/25/20 20:01 Zofran Inj IV PUSH 4 mg Q4H PRN Administration Nausea Pantoprazole Sodium 40 mg 03/26/20 09:00 03/28/20 08:58 Protonix PO 40 mg QAM [facility] Administration Potassium Chloride 20 meq 03/28/20 09:00 03/28/20 17:00 Kcl Tablet PO 20 meq BIDWM [facility] Administration Spironolactone 25 mg 03/28/20 09:00 03/28/20 17:00 Aldactone PO 25 mg BID [facility] Administration Thiamine HCl 100 mg 03/24/20 12:55 03/28/20 08:58 Vitamin B-1 PO 100 mg DAILY EUGENIE Administration Tramadol HCl 25 mg 03/25/20 14:12 03/28/20 15:13 Ultram PO 25 mg Q6H PRN Administration Pain Rated 4-6 Radiology Results: ITS Impressions Abdomen/Pelvis CT 03/23/20 22:42 IMPRESSION: 1. Hepatic steatosis, hepatomegaly, possible cirrhosis. 2. Large amount of ascites. 3. Bibasilar atelectasis, multi segmental on the right. 4. Small right pleural effusion. 5. Fibroids. Paracentesis Ultrasound 03/24/20 11:56 IMPRESSION: 1. Successful ultrasound-guided paracentesis yielding
[2020-03-29] MEDS: LACTULOSE 20 GM/30 ML UDC 10 GM PO (08:28)
[2020-03-29] MEDS: PANTOPRAZOLE 40 MG TABLET PO (08:29)
[2020-03-29] MEDS: FUROSEMIDE 40 MG TABLET PO (08:29)
[2020-03-29] MEDS: MAGNESIUM OXIDE 400 MG TABLET PO (08:29)
[2020-03-29] MEDS: POTASSIUM CHLORIDE 20 MEQ TABLET.ER PO (08:29)
[2020-03-29] MEDS: FOLIC ACID 1 MG TABLET PO (08:29)
[2020-03-29] MEDS: THIAMINE HCL 100 MG TABLET PO (08:29)
[2020-03-29] MEDS: SPIRONOLACTONE 25 MG TABLET PO (08:29)
[2020-03-29] MEDS: ATORVASTATIN 10 MG TABLET PO (08:29)
[2020-03-29] MEDS: ESCITALOPRAM OXALATE 10 MG TABLET PO (08:29)
[2020-03-29] MEDS: HYDROCORTISONE ACETATE 25 MG SUPPOSITORY RECTAL (08:30)
--- NOTE | 2020-03-29 10:15 | PM.DS ---
DS: Admitting Diagnosis Admitting Diagnosis Admitting Diagnosis: Abdominal pain, distention DS: Discharge Diagnosis Discharge Diagnosis (1) Ascites: Qualifiers: Ascites type: due to alcoholic hepatitis Qualified Code(s): K70.11 - Alcoholic hepatitis with ascites Code(s): R18.8 - Other ascites Status: Acute Assessment and Plan: -----improving, down 5 lb since admission but still with a lot of ascites. She is not having any shortness of breath but still feels bloated. I spoke with Dr. Aguilar and Dr. Bailey, her PCP. Plan is to discharge on 50 mg b.i.d. as spironolactone and no Lasix. Plan to check BMP next week and Dr. Bailey is going to follow. CT abdomen/pelvis showed hepatic steatosis, hepatomegaly, possible cirrhosis with large volume ascites. She had a paracentesis 03/25 which yielded 5,000 ml of fluid. Gram stain is negative so far and cell count looks normal. No signs of malignancy on cytology. (2) Alcoholic hepatitis: Qualifiers: Ascites presence: with ascites Qualified Code(s): K70.11 - Alcoholic hepatitis with ascites Code(s): K70.10 - Alcoholic hepatitis without ascites Status: Acute Assessment and Plan: ----Recently diagnosed with alcoholic hepatitis 1 month ago when she was hospitalized here, suspect ascites is from same. Total bilirubin down to 2.3 from 10.3 during her last admission 1 month ago. ALT, alk-phos still elevated but also improved. One month ago viral hepatitis panel negative. TORITO positive. GGT elevated. (3) Alcohol abuse: Code(s): F10.10 - Alcohol abuse, uncomplicated Status: Acute Assessment and Plan: -----Patient reports her last drink was about 1 week ago. She has a history of drinking 5-10 drinks daily. She becomes tearful upon discussing this subject. She is motivated to quit drinking. (4) Leukocytosis: Qualifiers: Leukocytosis type: unspecified Qualified Code(s): D72.829 - Elevated white blood cell count, unspecified Code(s): D72.829 - Elevated white blood cell count, unspecified Status: Acute Assessment and Plan: -----resolved. May be secondary to stress reaction. SBP is less likely given the initial ascitic fluid analysis, nontender abdomen. Antibiotics have been stopped. Will monitor. (5) Hypokalemia: Code(s): E87.6 - Hypokalemia Status: Resolved Assessment and Plan: -----Persistently low but now on spironolactone 50 mg b.i.d.. Repeat Bmp next week and if she still low she may need supplementation (6) Pleural effusion: Code(s): J90 - Pleural effusion, not elsewhere classified Status: Acute Assessment and Plan: ----Small right pleural effusion noted on imaging. Continue spironolactone (7) Hyponatremia: Code(s): E87.1 - Hypo-osmolality and hyponatremia Status: Acute Assessment and Plan: -----Up to 131 today. Will continue to monitor outpatient especially given her need for diuresis. _ (8) Anxiety: Code(s): F41.9 - Anxiety disorder, unspecified Status: Acute Assessment and Plan: ----Anxiety with depression; continue her home Lexapro and Xanax. (9) Elevated antinuclear antibody (TORITO) level: Code(s): R76.8 - Other specified abnormal immunological findings in serum Status: Acute Assessment and Plan: -----exceptionally high, will need to follow up with a stave mill hand. I spoke with Dr. Bailey who recommend a TORITO cascade and he is going to follow with this DS: Summary Hospital Course Reason for hospitalization: Alcoholic liver failure with ascites Hospital Course: Patient is a 49-year-old female with a known history of alcoholism who presented emergency room for abdominal pain and distention found to have significant ascites without infection. Vitals in the ER were temperature 36.3? C, pulse 125, respiratory rate 20, blood pres
[2020-03-31 02:01] LABS: Alpha Fetoprotein Tumor Marker 1.8 ng/mL (<6.1)
[2020-04-01 22:40] LABS: Anti Nuclear Antibody Titer 1:40 (Negative)
--- NOTE | 2020-04-04 07:44 | PC.NURSE ---
AFP- WNL, Ascites cx is negative, Blood cx is negative.
[2020-04-04 08:56] LABS: ANA Cascade Screen Positive (Negative)
[2020-04-05 11:07] LABS: Chromatin (Nucleosomal) Ab <1.0; RNP Antibody <1.0; Sm Antibody <1.0; Sm/RNP Antibody <1.0
[2020-04-06 20:45] LABS: Sjogren's Antibody (SS-B) <1.0
[2020-04-09 13:32] LABS: Ribosomal Antibody <1.0
[2020-04-10 08:26] LABS: Jo-1 Antibody <1.0
[2020-04-10 08:27] LABS: Centromere B Antibody 3.9
== END 2020-03-29 12:20 | disposition home or self-care (01) | DRG 433 ==
LOC: ANHED 23:10 → ANH2MED 03-24 00:53
PROVIDERS: Emergency Medicine; Internal Medicine Gastroenterology; Physician Assistant; Admitting Provider Family Medicine; Emergency Provider Emergency Medicine; PCP Family Medicine; Visit Provider Physician Assistant
DX: K70.31 Alcoholic cirrhosis of liver with ascites (principal); J90 Pleural effusion, not elsewhere classified; E87.1 Hypo-osmolality and hyponatremia; K70.11 Alcoholic hepatitis with ascites; D72.829 Elevated white blood cell count, unspecified; E87.6 Hypokalemia; R76.8 Other specified abnormal immunological findings in serum; F10.20 Alcohol dependence, uncomplicated; I10 Essential (primary) hypertension; F41.8 Other specified anxiety disorders; Z87.891 Personal history of nicotine dependence
CPT/HCPCS: 36415; 49083; 71046; 74177; 80048; 80053; 81001; 81025; 82042; 82105; 82150; 82247; 82248; 82945; 83516; 83605; 83615; 83690; 83735; 84157; 85025; 85055; 85610; 85730; 86038; 86039; 86225; 86235; 87040; 87070; 87075; 87086; 87088; 87205; 88108; 89051; 96365; 96375; 96376; 99285; A9270; G0378; J0692; J0696; J1940; J2270; J2405; J3475; Q9967

== ENCOUNTER 2020-04-04 16:14 | Outpatient (CLI) | payer OTHER, SELFPAY ==
[2020-04-04 17:37] LABS: Alanine Aminotransferase 33 U/L (4-35); Albumin Level 2.2 g/dL (3.5-5.1); Alkaline Phosphatase 327 U/L (38-126); Anion Gap 7 mmol/L (8-16); Aspartate Amino Transferase 85 U/L (14-36); Bilirubin,Total 3.3 mg/dL (0.2-1.3); Blood Urea Nitrogen 7 mg/dL (7-17); Calcium 7.7 mg/dL (8.4-10.2); Carbon Dioxide 25 mmol/L (22-30); Chloride 96 mmol/L (98-107); Estimated Glomerular Filt Rate > 60; Glucose 116 mg/dL (65-105); Potassium 3.5 mmol/L (3.4-5.0); Sodium 128 mmol/L (137-145)
[2020-04-04 18:09] LABS: Erythrocyte Sedimentation Rate 23 mm/hr (0-20)
[2020-04-06 20:42] LABS: ANA Cascade Screen Positive (Negative)
[2020-04-06 22:38] LABS: Chromatin (Nucleosomal) Ab <1.0; RNP Antibody <1.0; Sm Antibody <1.0; Sm/RNP Antibody <1.0
[2020-04-07 03:59] LABS: Sjogren's Antibody (SS-B) <1.0
[2020-04-10 08:30] LABS: Jo-1 Antibody <1.0; Ribosomal Antibody <1.0
[2020-04-10 08:31] LABS: Centromere B Antibody 4.6
== END 2020-04-04 16:15 | disposition home or self-care (01) ==
PROVIDERS: PCP Family Medicine; Referring Provider Physician Assistant; Visit Provider Nurse Practitioner Family
DX: R70.0 Elevated erythrocyte sedimentation rate (principal); E87.5 Hyperkalemia; R74.8 Abnormal levels of other serum enzymes
CPT/HCPCS: 36415; 80053; 83516; 85652; 86038; 86225; 86235

== ENCOUNTER 2020-04-30 14:58 | Outpatient (CLI) | payer OTHER, SELFPAY ==
[2020-04-30 15:44] LABS: Prothrombin Time 22.3 Seconds (11.1-14.7)
== END 2020-04-30 14:59 | disposition home or self-care (01) ==
PROVIDERS: PCP Family Medicine; Visit Provider Internal Medicine Gastroenterology
DX: K70.31 Alcoholic cirrhosis of liver with ascites (principal)
CPT/HCPCS: 36415; 85610

== ENCOUNTER 2020-05-17 10:24 | Outpatient (CLI) | payer OTHER, SELFPAY ==
[2020-05-17 10:58] LABS: Basophils Absolute Auto 0.1 K/mm3 (0.0-0.1); Basophils Percent Auto 0.6 % (0.2-1.2); Eosinophils Absolute Auto 0.3 K/mm3 (0-0.3); Eosinophils Percent Auto 2.6 % (0-4.4); Hemoglobin 9.3 g/dL (12.0-15.0); Immature Granulocyte Absolute 0.03 K/mm3 (0.00-0.031); Immature Granulocyte Percent A 0.3 % (0-0.5); Immature Platelet Fraction Pct 5.1 % (0.9-11.2); Lymphocytes Absolute Auto 1.14 K/mm3 (0.9-3.2); Lymphocytes Percent Auto 10.7 % (18.3-44.2); Mean Corpuscular HGB Conc 34.4 g/dl (32-36); Mean Corpuscular Hemoglobin 28.1 pg (26-34); Mean Corpuscular Volume 81.6 fl (80-100); Mean Platelet Volume 10.4 fl (7.4-10.4); Monocytes Absolute Auto 1.1 K/mm3 (0.1-0.6); Monocytes Percent Auto 10.2 % (2.6-8.5); Neutrophils Absolute Auto 8.1 K/mm3 (1.3-6.7); Neutrophils Percent Auto 75.6 % (45.5-73.1); Platelet Count Result 129 k/mm3 (150-375); Red Blood Count 3.31 M/mm3 (4.2-5.4); Red Cell Distribution Width 18.5 % (11.5-14.5); White Blood Count 10.7 K/mm3 (4.5-10.0)
[2020-05-17 11:08] LABS: Alanine Aminotransferase 16 U/L (4-35); Albumin Level 2.9 g/dL (3.5-5.1); Alkaline Phosphatase 333 U/L (38-126); Anion Gap 5 mmol/L (8-16); Aspartate Amino Transferase 46 U/L (14-36); Bilirubin,Total 3.6 mg/dL (0.2-1.3); Blood Urea Nitrogen 9 mg/dL (7-17); Calcium 8.5 mg/dL (8.4-10.2); Carbon Dioxide 23 mmol/L (22-30); Chloride 105 mmol/L (98-107); Cholesterol 122 mg/dL (0-200); Creatine Kinase < 20 U/L (30-135); Estimated Glomerular Filt Rate > 60; Glucose 107 mg/dL (65-105); HDL Direct 27 mg/dL; Potassium 4.2 mmol/L (3.4-5.0); Sodium 133 mmol/L (137-145); Triglycerides 84 mg/dL (<150)
[2020-05-17 11:19] LABS: LDL Cholesterol Direct 42 mg/dL
== END 2020-05-17 10:25 | disposition home or self-care (01) ==
LOC: ANHLAB 10:26
PROVIDERS: PCP Family Medicine; Visit Provider Nurse Practitioner Family
DX: D72.829 Elevated white blood cell count, unspecified (principal); E78.5 Hyperlipidemia, unspecified; L65.9 Nonscarring hair loss, unspecified; K70.11 Alcoholic hepatitis with ascites
CPT/HCPCS: 36415; 80053; 80061; 82550; 84443; 85025; 85055

== ENCOUNTER 2020-06-29 14:23 | Outpatient (CLI) | payer OTHER, SELFPAY ==
[2020-06-29 15:14] LABS: Alanine Aminotransferase 29 U/L (4-35); Albumin Level 2.5 g/dL (3.5-5.1); Alkaline Phosphatase 277 U/L (38-126); Anion Gap 5 mmol/L (8-16); Aspartate Amino Transferase 79 U/L (14-36); Blood Urea Nitrogen 10 mg/dL (7-17); Calcium 8.3 mg/dL (8.4-10.2); Carbon Dioxide 23 mmol/L (22-30); Chloride 105 mmol/L (98-107); Estimated Glomerular Filt Rate 59; Glucose 85 mg/dL (65-105); Potassium 4.2 mmol/L (3.4-5.0); Sodium 133 mmol/L (137-145)
== END 2020-06-29 14:24 | disposition home or self-care (01) ==
LOC: ANHLAB 14:25
PROVIDERS: PCP Family Medicine; Visit Provider Internal Medicine Gastroenterology
DX: K70.31 Alcoholic cirrhosis of liver with ascites (principal)
CPT/HCPCS: 36415; 80053

== ENCOUNTER 2020-08-22 14:48 | Outpatient (CLI) | payer OTHER, SELFPAY ==
[2020-08-22 15:29] LABS: Basophils Absolute Auto 0.1 K/mm3 (0.0-0.1); Basophils Percent Auto 1.2 % (0.2-1.2); Eosinophils Absolute Auto 0.2 K/mm3 (0-0.3); Hematocrit 21.6 % (37.0-47.0); Hemoglobin 7.1 g/dL (12.0-15.0); Immature Granulocyte Absolute 0.01 K/mm3 (0.00-0.031); Immature Granulocyte Percent A 0.2 % (0-0.5); Immature Platelet Fraction Pct 3.3 % (0.9-11.2); Lymphocytes Percent Auto 22.2 % (18.3-44.2); Mean Corpuscular HGB Conc 32.9 g/dl (32-36); Mean Corpuscular Hemoglobin 29.5 pg (26-34); Mean Corpuscular Volume 89.6 fl (80-100); Monocytes Absolute Auto 0.9 K/mm3 (0.1-0.6); Neutrophils Absolute Auto 2.7 K/mm3 (1.3-6.7); Neutrophils Percent Auto 54.4 % (45.5-73.1); Platelet Count Result 97 k/mm3 (150-375); Red Blood Count 2.41 M/mm3 (4.2-5.4); Red Cell Distribution Width 23.9 % (11.5-14.5)
[2020-08-22 15:39] LABS: Alanine Aminotransferase 16 U/L (4-35); Albumin Level 2.3 g/dL (3.5-5.1); Alkaline Phosphatase 171 U/L (38-126); Anion Gap 4 mmol/L (8-16); Aspartate Amino Transferase 42 U/L (14-36); Bilirubin,Total 4.9 mg/dL (0.2-1.3); Blood Urea Nitrogen 4 mg/dL (7-17); Calcium 7.6 mg/dL (8.4-10.2); Carbon Dioxide 23 mmol/L (22-30); Chloride 105 mmol/L (98-107); Estimated Glomerular Filt Rate > 60; Glucose 116 mg/dL (65-105); INR 2.5; Potassium 3.5 mmol/L (3.4-5.0); Prothrombin Time 27.7 Seconds (11.1-14.7); Sodium 132 mmol/L (137-145)
== END 2020-08-22 14:49 | disposition home or self-care (01) ==
LOC: ANHLAB 14:50
PROVIDERS: PCP Family Medicine; Visit Provider Internal Medicine Gastroenterology
DX: K70.31 Alcoholic cirrhosis of liver with ascites (principal)
CPT/HCPCS: 36415; 80053; 85025; 85055; 85610

== ENCOUNTER 2021-01-21 16:13 | Outpatient (CLI) | payer OTHER, SELFPAY ==
[2021-01-21 16:34] LABS: Basophils Percent Auto 1.2 % (0.2-1.2); Eosinophils Absolute Auto 0.2 K/mm3 (0-0.3); Eosinophils Percent Auto 6.2 % (0-4.4); Hematocrit 26.6 % (37.0-47.0); Hemoglobin 8.2 g/dL (12.0-15.0); Immature Granulocyte Absolute 0.01 K/mm3 (0.00-0.031); Immature Granulocyte Percent A 0.3 % (0-0.5); Lymphocytes Absolute Auto 0.68 K/mm3 (0.9-3.2); Lymphocytes Percent Auto 20.1 % (18.3-44.2); Mean Corpuscular HGB Conc 30.8 g/dl (32-36); Mean Corpuscular Hemoglobin 28.7 pg (26-34); Mean Platelet Volume 10.8 fl (7.4-10.4); Monocytes Absolute Auto 0.3 K/mm3 (0.1-0.6); Monocytes Percent Auto 9.1 % (2.6-8.5); Neutrophils Absolute Auto 2.1 K/mm3 (1.3-6.7); Neutrophils Percent Auto 63.1 % (45.5-73.1); Platelet Count Result 147 k/mm3 (150-375); Red Blood Count 2.86 M/mm3 (4.2-5.4); Red Cell Distribution Width 16.8 % (11.5-14.5); White Blood Count 3.4 K/mm3 (4.5-10.0)
[2021-01-21 16:45] LABS: Alanine Aminotransferase 15 U/L (4-35); Albumin Level 3.2 g/dL (3.5-5.1); Alkaline Phosphatase 242 U/L (38-126); Anion Gap 9 mmol/L (8-16); Aspartate Amino Transferase 40 U/L (14-36); Blood Urea Nitrogen 11 mg/dL (7-17); Calcium 8.4 mg/dL (8.4-10.2); Carbon Dioxide 22 mmol/L (22-30); Chloride 106 mmol/L (98-107); Estimated Glomerular Filt Rate > 60; Glucose 165 mg/dL (65-105); Potassium 3.7 mmol/L (3.4-5.0); Sodium 137 mmol/L (137-145)
[2021-01-21 16:47] LABS: INR 1.3
== END 2021-01-21 16:14 | disposition home or self-care (01) ==
PROVIDERS: PCP Family Medicine; Visit Provider Internal Medicine Gastroenterology
DX: K70.31 Alcoholic cirrhosis of liver with ascites (principal)
CPT/HCPCS: 36415; 80053; 85025; 85610

== ENCOUNTER 2021-02-14 18:38 | Emergency (ER) | payer OTHER, SELFPAY ==
[2021-02-14] VITALS (11 sets, daily range): BP systolic 104–120; BP diastolic 63–72; PULSE 76–106; RESP 14–21; TEMP 37; O2SAT 100
--- NOTE | ~2021-02-14 | CT_ITS ---
EXAMINATION: CT brain wo con DATE: 02/14/2021 20:03 INDICATION: Right-sided tremors TECHNIQUE: Computed tomography (CT) of the head was performed without intravenous contrast. The dose- length product was 681.00 mGy-cm. Automated exposure control and iterative reconstruction technique w ere employed. COMPARISON: CT dated 02/19/2011 FINDINGS: Mild generalized atrophy. No acute intracranial hemorrhage, infarction, mass or mass effect . No ventriculomegaly or midline shift. Basilar cisterns are patent. Paranasal sinuses and mastoids a re pneumatized. No depressed skull fractures. IMPRESSION: 1. No acute intracranial abnormality. Reviewed, dictated and finalized at location A.
--- NOTE | 2021-02-14 18:54 | ECG_ITS ---
Measurements Intervals [place] Rate: 96 P: 0 [place]: 161 QRS: -7 QRSD: 76 T: 49 QT: 385 QTc: 488 Interpretive Statements SINUS RHYTHM BASELINE ARTIFACT- I, II, III, AVR, AVL, AVF, V1 NORMAL ECG Electronically Signed On 02-14-2021 20:14:21 CDT by Nba Arevalo D.O.
--- NOTE | 2021-02-14 19:23 | ED.GENADULT ---
HPI - General Adult General Chief complaint: Neuro Symptoms/Deficit Stated complaint: seizure Time Seen by Provider: 02/14/21 19:03 History of Present Illness HPI narrative: Patient 50-year-old female presents the emergency department with chief complaint of twitching on the right side. Patient has history of cirrhosis and also has had a seizure while she was inpatient at [place]. The patient is on Keppra reports that she last drank about a year ago reports that today she may have missed her medications is not quite sure reports that she had been twitching for about an hour on the right side of her body. Patient is able to answer questions denies any other focal neurological deficit the shaking actually does stop whenever she is engaged in conversation. Patient denies nausea vomiting denies diarrhea. Related Data Home Medications Medication Instructions Recorded Confirmed levetiracetam [Keppra] 100 mg PO BID 02/14/21 rifaximin 550 mg BID 02/14/21 Allergies Allergy/AdvReac Type Severity Reaction Status Date / Time No Known Allergies Allergy Verified 02/14/21 18:54 Review of Systems Review of Systems: Narrative: A 10 system review of systems was completed on the patient and is negative except for what is stated in the HPI. Nursing and ancillary documentation was reviewed. [facility] Past Medical History Medical History Anxiety Arm fracture, left BMI 20.0-20.9, adult Depression HTN (hypertension) Hypertension History of hypertension, she reports she was taken off blood pressure medications by her doctor and no longer takes them. Miscarriage Ovarian torsion Fixed with surgery UTI (urinary tract infection) Surgical History Surgical History H/O left wrist surgery History of gynecologic surgery For ovarian torsion Family History Family History Father Gastric cancer Diabetes mellitus Family history of alcoholism Sibling Alcoholism Family history of alcoholism Mother Family history of alcoholism Social History Social History Social History: The patient drinks equivalent of 10 drinks 4-5 days a week. She is no longer smoking but has the past history of smoking. She does not work. Her surrogate decision maker is her Marcelo Smoking packs per day: 0.15 Smoking cigarettes per day: 3.0 Years smoked: 6 Smoking pack-years: 0.90 Tobacco type: cigarettes Second hand tobacco smoke exposure: No Additional smoking assessment comments: quit in 2018 Alcohol intake: current Drinks per week: 30 Substance use: never Substance use type: does not use Gender identity (if verbalized by the patient): Female Spiritual care concerns: No Exam Narrative: Exam Narrative: GENERAL: Well-appearing, well-nourished, and in no acute distress. HEAD: Normocephalic, atraumatic. EYES: PERRLA and EOMI. ENT: Nares clear, no rhinorrhea or epistaxis. Mucous membranes moist. NECK: Supple. CHEST: Clear to auscultation. No respiratory distress. HEART: Regular rate and rhythm. No murmur heard. Normal peripheral pulses. ABDOMEN: Soft, nontender, nondistended, normal active bowel sounds. EXTREMITIES: Normal range of motion. No edema. SKIN: Warm, dry, no rash. NEURO: No focal deficits. Alert and oriented x3. No asterixis PSYCH: Normal mood and affect. Course Vital Signs Vital signs: Vital Signs Temperature 37.0 C 02/14/21 18:42 Pulse Rate 98 02/14/21 18:42 Respiratory Rate 16 02/14/21 18:42 Blood Pressure 107/70 02/14/21 18:42 Pulse Oximetry 100 02/14/21 18:42 Temperature 37.0 C 02/14/21 18:42 Pulse Rate 83 02/14/21 20:46 Respiratory Rate 17 02/14/21 20:46 Blood Pressure 105/63 02/14/21 20:45
[2021-02-14] MEDS: levETIRAcetam 500MG/NACL 100ML 500 MG/100 ML BAG 400 MG IVPB (19:49)
[2021-02-14 20:05] LABS: Hematocrit 25.4 % (37.0-47.0); Hemoglobin 7.5 g/dL (12.0-15.0); Immature Platelet Fraction Pct 2.6 % (0.9-11.2); Mean Corpuscular HGB Conc 29.5 g/dl (32-36); Mean Corpuscular Hemoglobin 25.1 pg (26-34); Mean Corpuscular Volume 84.9 fl (80-100); Mean Platelet Volume 9.1 fl (7.4-10.4); Platelet Count Result 144 k/mm3 (150-375); Red Blood Count 2.99 M/mm3 (4.2-5.4); Red Cell Distribution Width 16.8 % (11.5-14.5); White Blood Count 3.6 K/mm3 (4.5-10.0)
[2021-02-14] MEDS: SODIUM CHLORIDE 0.9% IV 1,000 ML 999 ML IV CONT (20:09)
[2021-02-14 20:13] LABS: Lactic Acid Reflex 1.3 mmol/L (0.7-2.1)
[2021-02-14 20:14] LABS: Alanine Aminotransferase 13 U/L (4-35); Albumin Level 3.3 g/dL (3.5-5.1); Alkaline Phosphatase 237 U/L (38-126); Anion Gap 5 mmol/L (8-16); Aspartate Amino Transferase 35 U/L (14-36); Bilirubin,Total 0.9 mg/dL (0.2-1.3); Blood Urea Nitrogen 14 mg/dL (7-17); Calcium 8.9 mg/dL (8.4-10.2); Carbon Dioxide 22 mmol/L (22-30); Chloride 109 mmol/L (98-107); Estimated CRCL calculation 83 ml/min; Estimated Glomerular Filt Rate > 60; Glucose 92 mg/dL (65-105); INR 1.4; Magnesium 1.7 mg/dL (1.6-2.3); Potassium 4.1 mmol/L (3.4-5.0); Prothrombin Time 17.1 Seconds (11.1-14.7); Sodium 136 mmol/L (137-145)
[2021-02-14 20:15] LABS: Ethanol < 10 mg/dL (<10)
[2021-02-14 20:15] LABS: Partial Thromboplastin Time 35.7 SECONDS (22.3-36.8)
[2021-02-14 20:26] LABS: Troponin I < 0.012 ng/mL (0.000-0.034)
[2021-02-14 20:30] LABS: Eosinophils Absolute Manual 0.28 K/mm3 (0.02-0.5); Eosinophils Percent Manual 8 % (0-4); Hypochromasia 1+ (NORMAL); Lymphocytes Absolute Manual 0.97 K/mm3 (1.1-4.5); Lymphocytes Percent Manual 27 % (18-44); Monocytes Absolute Manual 0.21 K/mm3 (0.1-0.90); Monocytes Percent Manual 6 % (3-9); Neutrophils Percent Manual 59 % (46-73); Platelet Estimate Adequate (Adequate); Total Cells Counted 100
[2021-02-14 20:31] LABS: Ovalocytes 1+ (NORMAL)
[2021-02-14 20:44] LABS: Ammonia 43 umol/L (9-30)
[2021-02-14 21:21] LABS: Add Urine Microscopic? NO; Appearance Urine Clear (Clear); Bilirubin Urine Negative (Negative); Blood Urine Negative (Negative); Color Urine Colorless (Yellow); Glucose Urine UA Negative (Negative); Ketones Urine Negative (Negative); Leukocyte Esterase Ur Negative LEU/UL (Negative); Nitrate Urine Negative (Negative); Protein Urine Negative (Negative); Urobilinogen Urine Negative mg/dL (<2.0)
[2021-02-14] MEDS: LACTULOSE 20 GM/30 ML UDC PO (21:21)
[2021-02-14 21:23] LABS: Specific Grav Ur 1.004 (1.001-1.035)
[2021-02-14] MEDS: MAGNESIUM SULF 2 GM/WATER 50ML 2 GM/50 ML BAG IVPB (22:09)
== END 2021-02-14 22:55 | disposition home or self-care (01) ==
PROVIDERS: Emergency Provider Emergency Medicine; PCP Family Medicine
DX: R56.9 Unspecified convulsions (principal); E83.42 Hypomagnesemia; I10 Essential (primary) hypertension; F41.9 Anxiety disorder, unspecified; F32.9 Major depressive disorder, single episode, unspecified; F17.210 Nicotine dependence, cigarettes, uncomplicated
CPT/HCPCS: 36415; 70450; 80053; 80307; 81003; 82140; 83605; 83735; 84484; 85025; 85055; 85610; 85730; 93005; 96365; 96367; 99284; A9270; J1953; J3475; J7030

== ENCOUNTER 2021-02-15 14:10 | Emergency (ER) | payer OTHER, SELFPAY ==
[2021-02-15 14:25] VITALS: BP 113/71; PULSE 100; RESP 20; TEMP 36.8; O2SAT 98
[2021-02-15 14:50] VITALS: BP 107/65; PULSE 99; RESP 20; O2SAT 100
--- NOTE | 2021-02-15 15:35 | ED.GENADULT ---
HPI - General Adult General Chief complaint: Unspecified Stated complaint: seizures Time Seen by Provider: 02/15/21 15:18 Source: patient and RN notes reviewed Limitations: no limitations History of Present Illness HPI narrative: Patient is 50 years old white female brought to the emergency room for the second time in 24 hours because of seizure-like activity. Patient was hospitalized at [facility] for 1-1/2-month because of liver cirrhosis complication, was discharged almost 1 month ago, and was discharged on Keppra 1000 twice daily at that time for seizure-like activities noticed during that hospitalization. Yesterday around 6 PM patient started having spells of shaking all over the upper and lower extremities lasted for about 10 to 15 seconds. During this seizure-like activity patient is able to talk, awake, alert and oriented x4. Patient came to our emergency room last night, blood work-up CAT scan of the head were okay and patient was discharged home and the seizure-like symptoms started coming back again almost every 5 minutes according to her . Patient again awake, alert and oriented x4 during the seizure-like activities. Patient denies any fever, chills, nausea, vomiting. Related Data Home Medications Medication Instructions Recorded Confirmed levetiracetam [Keppra] 100 mg PO BID 02/14/21 02/15/21 rifaximin 550 mg BID 02/14/21 02/15/21 Allergies Allergy/AdvReac Type Severity Reaction Status Date / Time No Known Allergies Allergy Verified 02/15/21 14:32 Review of Systems Review of Systems: Narrative: CONSTITUTIONAL: Denies fever, chills, or sweats. EYES: Denies visual changes, redness, or discharge. ENT: Denies rhinorrhea, congestion, sore throat, or otalgia. CARDIOVASCULAR: Denies chest pain, palpitations, or edema. RESPIRATORY: Denies cough or dyspnea. GASTROINTESTINAL: Denies abdominal pain, nausea, vomiting, or diarrhea. GENITOURINARY: Denies dysuria or hematuria. SKIN: Denies rash or itching. MUSCULOSKELETAL: Denies back pain, joint pain, or myalgia. NEUROLOGIC: Denies headache, numbness, or weakness. PSYCHIATRIC: Denies anxiety or depression. [facility] Past Medical History Medical History Anxiety Arm fracture, left BMI 20.0-20.9, adult Depression HTN (hypertension) Hypertension History of hypertension, she reports she was taken off blood pressure medications by her doctor and no longer takes them. Miscarriage Ovarian torsion Fixed with surgery UTI (urinary tract infection) Surgical History Surgical History H/O left wrist surgery History of gynecologic surgery For ovarian torsion Family History Family History Father Gastric cancer Diabetes mellitus Family history of alcoholism Sibling Alcoholism Family history of alcoholism Mother Family history of alcoholism Social History Social History Social History: The patient drinks equivalent of 10 drinks 4-5 days a week. She is no longer smoking but has the past history of smoking. She does not work. Her surrogate decision maker is her Marcelo Smoking packs per day: 0.15 Smoking cigarettes per day: 3.0 Years smoked: 6 Smoking pack-years: 0.90 Tobacco type: cigarettes Second hand tobacco smoke exposure: No Additional smoking assessment comments: quit in 2018 Alcohol intake: current Drinks per week: 30 Substance use: never Substance use type: does not use Gender identity (if verbalized by the patient): Female Spiritual care concerns: No Exam Narrative: Exam Narrative: General appearance: Well-developed, well-nourished Skin: Normal color Head: Normocephalic, nontraumatic Eyes: Clear conjunctiva ENT: Oropharynx normal, ears normal, nose normal Neck: Supple,
[2021-02-15 15:41] VITALS: BP 120/94; PULSE 99; RESP 20; O2SAT 100
[2021-02-15 16:08] LABS: Basophils Percent Auto 0.9 % (0.2-1.2); Eosinophils Absolute Auto 0.4 K/mm3 (0-0.3); Eosinophils Percent Auto 7.9 % (0-4.4); Hemoglobin 7.9 g/dL (12.0-15.0); Lymphocytes Absolute Auto 0.95 K/mm3 (0.9-3.2); Lymphocytes Percent Auto 20.7 % (18.3-44.2); Mean Corpuscular HGB Conc 29.3 g/dl (32-36); Mean Corpuscular Volume 85.4 fl (80-100); Mean Platelet Volume 9.6 fl (7.4-10.4); Monocytes Absolute Auto 0.8 K/mm3 (0.1-0.6); Monocytes Percent Auto 16.6 % (2.6-8.5); Neutrophils Absolute Auto 2.5 K/mm3 (1.3-6.7); Neutrophils Percent Auto 53.9 % (45.5-73.1); Platelet Count Result 155 k/mm3 (150-375); Red Blood Count 3.16 M/mm3 (4.2-5.4); Red Cell Distribution Width 16.8 % (11.5-14.5); White Blood Count 4.6 K/mm3 (4.5-10.0)
[2021-02-15 16:10] LABS: INR 1.3; Prothrombin Time 16.2 Seconds (11.1-14.7)
[2021-02-15 16:59] VITALS: BP 112/63; PULSE 95; RESP 20; O2SAT 99
[2021-02-15 17:03] LABS: Ammonia 20 umol/L (9-30)
[2021-02-15 18:40] VITALS: BP 112/63; PULSE 67; RESP 15; O2SAT 97
== END 2021-02-15 18:41 | disposition home or self-care (01) ==
PROVIDERS: Emergency Provider Emergency Medicine; PCP Family Medicine
DX: R56.9 Unspecified convulsions (principal); K74.60 Unspecified cirrhosis of liver; I10 Essential (primary) hypertension; Z87.440 Personal history of urinary (tract) infections; Z87.891 Personal history of nicotine dependence
CPT/HCPCS: 36415; 82140; 85025; 85055; 85610; 99283

== ENCOUNTER 2021-04-13 20:44 | Inpatient (IN) | payer OTHER, SELFPAY ==
[2021-04-13] VITALS (9 sets, daily range): BP systolic 104–124; BP diastolic 57–73; PULSE 102–112; RESP 19–21; TEMP 37.1; O2SAT 94–100
--- NOTE | ~2021-04-13 | CT_ITS ---
EXAMINATION: CT brain wo con DATE: 04/13/2021 23:20 INDICATION: Confusion TECHNIQUE: Computed tomography (CT) of the head was performed without intravenous contrast. Sagittal and coronal reconstructions were performed. The mA was adjusted according to patient size. Iterative reconstruction technique was employed. The dose-length product was 1210.67 mGy-cm. COMPARISON: head CT dated 02/14/2021 and 02/19/2011 FINDINGS: Unchanged small focus of encephalomalacia in the right frontal lobe consistent with chronic infarct. No acute intracranial hemorrhage, acute infarction or abnormal extra axial fluid collection. Symmetri c prominence of the sulci consistent with mild age-appropriate diffuse cerebral volume loss. Ventric les are normal and symmetric. No mass/mass effect. The orbits, paranasal sinuses and mastoid air cell s are normal. IMPRESSION: 1. No acute intracranial process. 2. Small focus of encephalomalacia in the right frontal lobe consistent with chronic infarct. Reviewed, dictated and finalized at location A. IMPRESSION: 1. No acute intracranial process. 2. Small focus of encephalomalacia in the right frontal lobe consistent with ch ronic infarct.
--- NOTE | ~2021-04-13 | XR_ITS ---
EXAMINATION: XR chest 1V portable DATE: 04/13/2021 22:03 INDICATION: Syncope. Possible overdose. TECHNIQUE: frontal view of the chest was obtained. COMPARISON: Chest radiograph dated 03/26/2020 FINDINGS: The lungs remain clear with no focal airspace opacities, pulmonary edema, pleural effusion or pneumot horax. The cardiomediastinal silhouette is normal. Visualized bones and soft tissues are unremarkable . IMPRESSION: 1. No acute cardiopulmonary disease. Reviewed, dictated and finalized at location A.
--- NOTE | 2021-04-13 21:49 | ECG_ITS ---
Measurements Intervals [place] Rate: 116 P: 53 TN: 128 QRS: 7 QRSD: 84 T: 56 QT: 335 QTc: 467 Interpretive Statements SINUS TACHYCARDIA DELAYED PRECORDIAL R/S TRANSITION BASELINE WANDER- I, II, III ABNORMAL ECG Electronically Signed On 04-14-2021 7:03:46 CDT by Nba Arevalo D.O.
--- NOTE | 2021-04-13 21:54 | ED.GENADULT ---
HPI - General Adult General Chief complaint: Overdose Stated complaint: OD Time Seen by Provider: 04/13/21 21:34 Source: EMS, RN notes reviewed and old records reviewed Mode of arrival: EMS Limitations: clinical condition History of Present Illness HPI narrative: This is a 50 year old female with history of alcohol abuse, cirrhosis who presents for evaluation of a fall and possible overdose. PAtient states her legs gave out so she fell. EMS was called for fall but on their arrival patient was found to be somewhat out of it, and there was evidence of fentanyl use in the house. Patient was given narcan for possible overdose and she became more alert. She also develop nausea, vomiting and shivering after narcan dose. Patient denies drug use. She does admit to alcohol use yesterday. She reports headache but denies chest pain, sob, abdominal pain. Related Data Home Medications Medication Instructions Recorded Confirmed levetiracetam [Keppra] 100 mg PO BID 02/14/21 02/15/21 rifaximin 550 mg BID 02/14/21 02/15/21 Allergies Allergy/AdvReac Type Severity Reaction Status Date / Time No Known Allergies Allergy Verified 04/13/21 20:49 Review of Systems Review of Systems: All systems reviewed & are unremarkable except as noted in HPI and below PMFSH Past Medical History Medical History (Updated 04/14/21 @ 01:19 by Jesusita Winter MD) Anxiety Arm fracture, left BMI 20.0-20.9, adult Cirrhosis Depression HTN (hypertension) Hypertension History of hypertension, she reports she was taken off blood pressure medications by her doctor and no longer takes them. Miscarriage Ovarian torsion Fixed with surgery UTI (urinary tract infection) Surgical History Surgical History H/O left wrist surgery History of gynecologic surgery For ovarian torsion Family History Family History Father Gastric cancer Diabetes mellitus Family history of alcoholism Sibling Alcoholism Family history of alcoholism Mother Family history of alcoholism Social History Social History Social History: The patient drinks equivalent of 10 drinks 4-5 days a week. She is no longer smoking but has the past history of smoking. She does not work. Her surrogate decision maker is her Marcelo Smoking packs per day: 0.15 Smoking cigarettes per day: 3.0 Years smoked: 6 Smoking pack-years: 0.90 Tobacco type: cigarettes Second hand tobacco smoke exposure: No Additional smoking assessment comments: quit in 2018 Alcohol intake: current Drinks per week: 30 Substance use: never Substance use type: does not use Gender identity (if verbalized by the patient): Female Sexual Orientation (if Verbalized by the Patient): Straight or Heterosexual Spiritual care concerns: No Exam Const: General: alert Other: oriented to person HENMT: Head: normocephalic and atraumatic Face and sinus: normal facial exam, sinuses nontender and face symmetric Mouth: Yes Normal oral and palatal mucosa present, Yes lip normal, Yes oropharynx normal and Yes moist mucous membranes Eyes: Conjunctivae: conjunctivae normal Pupils: Equal, round and reactive pupils present EOM: EOMs intact bilaterally Chest: Chest palpation & inspection: normal inspection of the chest Resp: Effort & Inspection: normal respiratory effort and no retractions Auscultation: clear to auscultation bilaterally Cardio: Rate: regular rate Rhythm: regular rhythm Heart sounds: no murmurs GI: Inspection: non-distended GI Palp: Yes Soft to palpation, No Tenderness to palpation present (GI) and No Guarding due to palpation present (GI) Auscultation: normal bowel sounds Neuro: General: moves all extremities and CN's II-XI intact bilaterally Cranial nerves: Yes Nystagmus not present Other: tremu
[2021-04-13 22:20] LABS: Basophils Percent Auto 0.2 % (0.2-1.2); Hematocrit 28.2 % (37.0-47.0); Hemoglobin 8.2 g/dL (12.0-15.0); Immature Granulocyte Absolute 0.04 K/mm3 (0.00-0.031); Immature Granulocyte Percent A 0.8 % (0-0.5); Lymphocytes Absolute Auto 0.27 K/mm3 (0.9-3.2); Lymphocytes Percent Auto 5.6 % (18.3-44.2); Mean Corpuscular HGB Conc 29.1 g/dl (32-36); Mean Corpuscular Hemoglobin 22.4 pg (26-34); Mean Platelet Volume 9.2 fl (7.4-10.4); Monocytes Absolute Auto 0.3 K/mm3 (0.1-0.6); Monocytes Percent Auto 5.4 % (2.6-8.5); Neutrophils Absolute Auto 4.2 K/mm3 (1.3-6.7); Platelet Count Result 73 k/mm3 (150-375); Red Blood Count 3.66 M/mm3 (4.2-5.4); Red Cell Distribution Width 17.8 % (11.5-14.5); White Blood Count 4.8 K/mm3 (4.5-10.0)
[2021-04-13 22:27] LABS: INR 1.3; Prothrombin Time 16.1 Seconds (11.1-14.7)
[2021-04-13 22:28] LABS: Partial Thromboplastin Time 31.8 SECONDS (22.3-36.8)
[2021-04-13 22:29] LABS: Alanine Aminotransferase 17 U/L (4-35); Albumin Level 3.5 g/dL (3.5-5.1); Alkaline Phosphatase 142 U/L (38-126); Anion Gap 9 mmol/L (8-16); Aspartate Amino Transferase 46 U/L (14-36); Bilirubin,Total 1.4 mg/dL (0.2-1.3); Blood Urea Nitrogen 8 mg/dL (7-17); Calcium 9.1 mg/dL (8.4-10.2); Carbon Dioxide 19 mmol/L (22-30); Chloride 110 mmol/L (98-107); Estimated CRCL calculation 96 ml/min; Estimated Glomerular Filt Rate > 60; Glucose 115 mg/dL (65-110); Phosphorus 3.6 mg/dL (2.5-4.5); Potassium 4.2 mmol/L (3.4-5.0); Sodium 138 mmol/L (137-145)
[2021-04-13 22:33] LABS: Acetaminophen < 10 ug/mL (10-30); Ammonia 28 umol/L (9-30)
[2021-04-13 22:38] LABS: Ethanol < 10 mg/dL (<10)
[2021-04-13 22:49] LABS: Add Urine Microscopic? YES; Appearance Urine Clear (Clear); Bacteria Urine Trace /hpf; Bilirubin Urine Negative (Negative); Blood Urine Negative (Negative); Color Urine Yellow (Yellow); Glucose Urine UA Negative (Negative); Ketones Urine Trace mg/dL (Negative); Leukocyte Esterase Ur Negative LEU/UL (Negative); Mucus Urine Few /lpf; Nitrate Urine Negative (Negative); Protein Urine 2+ mg/dL (Negative); Squamous Epithelial Cell Urine Rare /hpf (Few); Urobilinogen Urine Negative mg/dL (<2.0); WBC Urine 0-3 /hpf
[2021-04-13 22:54] LABS: Hypochromasia 2+ (NORMAL); Platelet Estimate Decreased (Adequate)
[2021-04-13] MEDS: SODIUM CHLORIDE 0.9% IV 1,000 ML 999 ML IV CONT (22:54)
[2021-04-13 22:55] LABS: Ovalocytes 1+ (NORMAL); Poikilocytosis 1+ (NORMAL)
[2021-04-13 23:03] LABS: Alveolar/Arterial O2 Gradient 25.1 mmHg; Base Excess ABG -2.4 mEq/l (+/-2.0); Carboxyhemoglobin 0.7 % THb (0-2.0); Fractional Inspired Oxygen 21 %; Methemoglobin ABG 0.3 %THb (0-1.5); Oxygen Content ABG 12.4 %vol (16.0-22.0); Oxygen Saturation ABG 97.8 % (95.0-100.0); Oxyhemoglobin 95.8 % THb (90.0-100.0); PO2 ABG 93.5 mmHg (80.0-100.0); PO2 FiO2 Ratio Arterial Blood 4.45 %; Reduced Hemoglobin 3.2 %THb (0-5.0); Total Hemoglobin 9.1 g/dL (12.0-18.0)
[2021-04-13 23:05] LABS: Modified Allen's Test Pass; Site Drawn RIGHT RADIAL; pH ABG 7.503 (7.350-7.450)
[2021-04-13 23:06] LABS: Amphetamine Screen Urine Negative (Negative); Barbiturate Screen Urine Negative (Negative); Benzodiazepines Screen Urine Negative (Negative); Cannabinoid Screen Urine Negative (Negative); Cocaine Screen Urine Negative (Negative); Methadone Screen Urine Negative (Negative); Opiate Screen Urine Negative (Negative); Phencyclidine Screen Urine Negative (Negative)
[2021-04-13 23:06] LABS: Device ROOM AIR
--- NOTE | 2021-04-13 23:20 | PC.NURSE ---
Assumed care of pt at this time, report taken from Trevor HAYS. Pt asleep on stretcher upon entering room. Pt arousable to name. Alert to self, place, and situation, but disoriented to time. States she forgot what year it is. Pt currently 100% on 2L NC. States she does not know what happened tonight to bring her to ED, but reports generalized soreness. States she thinks she might've fallen.
[2021-04-14] VITALS (13 sets, daily range): BP systolic 112–125; BP diastolic 58–75; PULSE 82–102; RESP 16–20; TEMP 36.1–37.7; O2SAT 98–100; BMI 22.3
--- NOTE | 2021-04-14 01:05 | PC.NURSE ---
Pt. did not tolerate bedpan. Pt. requested bedside commode. Pt. stood up with assistance stating I can't feel my legs . Pt. safely on commode at this time.
[2021-04-14 01:47] LABS: EDCOVIDSCREEN Negative (Negative)
--- NOTE | 2021-04-14 02:17 | ADMGEN ---
This patient, Nirmala Baker, was admitted to 2 Medical Room [facility] @ 0210. Patient/family oriented to hospital policies and general routines including ID bracelet, bed and alarms, visiting hours, pain management, procedures, bathroom and other care routines, personal items, smoking policy, room service/diet, and visiting hours. Information on how to activate the Rapid Response Team has been discussed. Patient/Family are encouraged to report perceived risks to care and to ask questions if they do not understand what they are told or what they should do.
--- NOTE | 2021-04-14 04:32 | PM.IMHP ---
H&P: HPI History of Present Illness Date/Time: 04/14/21 04:32 Chief Complaint: Altered mental status Narrative: This is a 50-year-old female with past medical history significant for alcohol dependence, polysubstance abuse, tobacco dependence. Patient was brought to the emergency room via EMS after EMS got called due to a fall when they presented to the house the patient seemed to be out of it and there was evidence of substance abuse she received Narcan on the field and she became more alert but tremulous and have some nausea and vomiting as well. At the time of my visit patient was laying in gurney she was obtunded a friend was at her bedside. Patient was unable to give me much history she responded I don't know to all questions and denied any discomfort. Preliminary workup was significant for chest x-ray with infiltrates. Rest of workup was essentially nonrevealing. Review of Systems Review of Systems: Patient response I don't know to all questions and denied any discomfort. ROS unobtainable: Yes unobtainable due to mental status PMFSH Past Medical History Medical History (Updated 04/14/21 @ 04:59 by Jevon Frausto MD) Anxiety Arm fracture, left BMI 20.0-20.9, adult Cirrhosis Depression HTN (hypertension) Hypertension History of hypertension, she reports she was taken off blood pressure medications by her doctor and no longer takes them. Miscarriage Ovarian torsion Fixed with surgery UTI (urinary tract infection) Surgical History Surgical History H/O left wrist surgery History of gynecologic surgery For ovarian torsion Family History Family History Father Gastric cancer Diabetes mellitus Family history of alcoholism Sibling Alcoholism Family history of alcoholism Mother Family history of alcoholism Social History Social History Social History: The patient drinks equivalent of 10 drinks 4-5 days a week. She is no longer smoking but has the past history of smoking. She does not work. Her surrogate decision maker is her Marcelo Smoking packs per day: 0.15 Smoking cigarettes per day: 3.0 Years smoked: 6 Smoking pack-years: 0.90 Smoking status: Current every day smoker Tobacco type: cigarettes Second hand tobacco smoke exposure: No Additional smoking assessment comments: quit in 2018 Alcohol intake: current Drinks per week: 30 Substance use: never Substance use type: does not use Gender identity (if verbalized by the patient): Female Sexual Orientation (if Verbalized by the Patient): Straight or Heterosexual Spiritual care concerns: No Meds Home Medications and Allergies Home Medications Medication Instructions Recorded Confirmed Type levetiracetam [Keppra] 1,000 mg PO BID 02/14/21 04/14/21 History tramadol 50 mg tablet 50 mg PO Q6H PRN #75 tablet 03/15/21 04/14/21 Rx furosemide 40 mg PO BID 04/14/21 04/14/21 History Allergies Allergy/AdvReac Type Severity Reaction Status Date / Time No Known Allergies Allergy Verified 04/13/21 20:49 Vital Signs Vital Signs - 24 hr 04/13/21 20:44 04/13/21 20:50 04/13/21 21:09 Temperature 98.7 F Pulse Rate 112 H 109 H Respiratory Rate 20 19 19 Blood Pressure 120/58 L 104/57 L Pulse Oximetry 95 94 04/13/21 21:56 04/13/21 22:00 04/13/21 22:15 Temperature Pulse Rate 102 H Respiratory Rate 19 Blood Pressure Pulse Oximetry 96 98 04/13/21 22:16 04/13/21 22:33 04/13/21 23:23 Temperature Pulse Rate 104 H 103 H 103 H Respiratory Rate 20 20 21 H Blood Pressure 118/73 124/67 Pulse Oximetry 100 04/14/21 00:50 04/14/21 01:58 04/14/21 02:31 Temperature 99.7 F H Pulse Rate 87 89 Respiratory Rate 20 20 Blood Pressure 125/75 122/75 Pulse Oximetry 100 100 100 04/14/21 03:38
[2021-04-14 06:19] LABS: Glucose Point of Care 90 mg/dl (65-105)
[2021-04-14] MEDS: levETIRAcetam 500 MG TABLET 1000 MG PO ×2 (09:21→16:58)
[2021-04-14] MEDS: FOLIC ACID 1 MG TABLET PO (09:22)
[2021-04-14] MEDS: THIAMINE HCL 100 MG TABLET PO (09:22)
--- NOTE | 2021-04-14 11:33 | PM.IMPN ---
Progress Note: A&P Assessment and Plan (1) Aspiration pneumonia: Code(s): J69.0 - Pneumonitis due to inhalation of food and vomit Status: Acute Assessment and Plan: Patient admitted for altered mental status, nausea, vomiting; mentation improved after administration of narcan on the field; found to have bilateral lunbg infiltrates and started on levofloxacin. Blood cultures are in progress; we will continue supportive care, aspiration and fall precautions. (2) Fall: Code(s): W19.XXXA - Unspecified fall, initial encounter Status: Acute Assessment and Plan: No injuries on physical examination and no gross deficit noted. (3) Alcohol use: Code(s): Z72.89 - Other problems related to lifestyle Status: Acute Assessment and Plan: CIWA protocol as needed. Patient started on thiamine and folate supplementation. (4) Tobacco use: Code(s): Z72.0 - Tobacco use Status: Acute Assessment and Plan: Nicotine patch as needed (5) Altered mental status: Code(s): R41.82 - Altered mental status, unspecified Status: Acute Assessment and Plan: Patient admitted for altered mental status, was reported to have evidence of substance use. Urine tox screen unrevealing. She improved after narcan. She was started on IV fluids, thiamine, folic acid. 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 She was loaded with keppra. Maintain fall, seizure and aspiration precautions. Subjective Date/time seen: 04/14/21 11:33 Patient is examined at the bedside. She did not offer any complaints. Review of Systems Review of Systems: All systems reviewed & are unremarkable except as noted in HPI and below Exam Narrative: GENERAL: The patient is alert and oriented in self only, in no apparent distress. She is pleasant and conversant in full sentences. HEENT: Pupils are equally round and briskly reactive to light. Extraocular muscles are intact. Oral mucous membranes are moist without lesions. NECK: The patient has no noted JVD. No adenopathy is appreciated. CHEST/LUNGS: Lungs are clear bilaterally without rhonchi, rales, or wheezes. T HEART: The patient has a regular rate and rhythm. No murmurs, rubs, or gallops are appreciated. Distal pulses are 2+. No carotid bruits appreciated. ABDOMEN: The patient?s abdomen is soft, nontender, and nondistended. Bowel sounds are positive. No organomegaly is appreciated. EXTREMITIES: The patient has no peripheral edema. SKIN: The patient?s skin is warm and dry, without rashes or lesions. PSYCHIATRIC: The patient is confused. Const: General: comfortable and no acute distress Objective Data Vital Signs Vital Signs: Vital Signs - 24 hr 04/13/21 20:44 04/13/21 20:50 04/13/21 21:09 Temperature 98.7 F Pulse Rate 112 H 109 H Respiratory Rate 20 19 19 Blood Pressure 120/58 L 104/57 L Pulse Oximetry 95 94 04/13/21 21:56 04/13/21 22:00 04/13/21 22:15 Temperature Pulse Rate 102 H Respiratory Rate 19 Blood Pressure Pulse Oximetry 96 98 04/13/21 22:16 04/13/21 22:33 04/13/21 23:23 Temperature Pulse Rate 104 H 103 H 103 H Respiratory Rate 20 20 21 H Blood Pressure 118/73 124/67 Pulse Oximetry 100 04/14/21 00:50 04/14/21 01:58 04/14/21 02:31 Temperature 99.7 F H Pulse Rate 87 89 Respiratory Rate 20 20 Blood Pressure 125/75 122/75 Pulse Oximetry 100 100 100 04/14/21 03:38 04/14/21 04:00 04/14/21 05:35 Temperature 100 F H 98.2 F Pulse Rate 91 102 H 94 Respiratory Rate 18 20 Blood Pressure 115/60 117/61 Pulse Oximetry 100 100 Intake/Output Intake/Output: Intake & Output 04/11/21 04/12/21 04/13/21 04/14/21 23:59 23:59 23:59 23:59 Intake Total 1000 1310 Output Total 900 Balance 1000 410 Meds/Results Medications: Active Medications Generic Name Dose Route Start Last Admin Trade Name Freq PRN Reason Stop Dose Admin Folic Acid 1 mg 04/14/21 09:00 04/14/21 09:22 Folic Ac
[2021-04-14 12:14] LABS: Glucose Point of Care 94 mg/dl (65-105)
[2021-04-14 17:24] LABS: Glucose Point of Care 90 mg/dl (65-105)
[2021-04-14 21:00] LABS: Glucose Point of Care 117 mg/dl (65-105)
[2021-04-15] VITALS (9 sets, daily range): BP systolic 101–154; BP diastolic 53–59; PULSE 75–115; RESP 18–20; TEMP 36.2–36.8; O2SAT 97–100
[2021-04-15 06:06] LABS: Basophils Percent Auto 0.4 % (0.2-1.2); Eosinophils Absolute Auto 0.1 K/mm3 (0-0.3); Eosinophils Percent Auto 5.1 % (0-4.4); Hematocrit 25.5 % (37.0-47.0); Hemoglobin 7.5 g/dL (12.0-15.0); Immature Granulocyte Absolute 0.01 K/mm3 (0.00-0.031); Immature Granulocyte Percent A 0.4 % (0-0.5); Immature Platelet Fraction Pct 5.5 % (0.9-11.2); Lymphocytes Absolute Auto 0.69 K/mm3 (0.9-3.2); Lymphocytes Percent Auto 27.3 % (18.3-44.2); Mean Corpuscular HGB Conc 29.4 g/dl (32-36); Mean Corpuscular Hemoglobin 22.7 pg (26-34); Mean Platelet Volume 9.8 fl (7.4-10.4); Monocytes Absolute Auto 0.3 K/mm3 (0.1-0.6); Monocytes Percent Auto 12.3 % (2.6-8.5); Neutrophils Absolute Auto 1.4 K/mm3 (1.3-6.7); Neutrophils Percent Auto 54.5 % (45.5-73.1); Platelet Count Result 60 k/mm3 (150-375); Red Blood Count 3.31 M/mm3 (4.2-5.4); Red Cell Distribution Width 18.1 % (11.5-14.5); White Blood Count 2.5 K/mm3 (4.5-10.0)
[2021-04-15 06:51] LABS: Alanine Aminotransferase 14 U/L (4-35); Albumin Level 2.7 g/dL (3.5-5.1); Alkaline Phosphatase 111 U/L (38-126); Anion Gap 3 mmol/L (8-16); Aspartate Amino Transferase 35 U/L (14-36); Bilirubin,Total 1.3 mg/dL (0.2-1.3); Blood Urea Nitrogen 6 mg/dL (7-17); Calcium 8.5 mg/dL (8.4-10.2); Carbon Dioxide 23 mmol/L (22-30); Chloride 111 mmol/L (98-107); Estimated CRCL calculation 96 ml/min; Estimated Glomerular Filt Rate > 60; Glucose 90 mg/dL (65-110); Potassium 3.7 mmol/L (3.4-5.0); Sodium 137 mmol/L (137-145)
[2021-04-15 07:00] LABS: Anisocytosis 1+ (NORMAL); Hypochromasia 1+ (NORMAL); Platelet Estimate Decreased (Adequate); Poikilocytosis 1+ (NORMAL)
[2021-04-15] MEDS: levETIRAcetam 500 MG TABLET 1000 MG PO ×2 (08:13→17:17)
[2021-04-15] MEDS: FOLIC ACID 1 MG TABLET PO (08:13)
[2021-04-15] MEDS: THIAMINE HCL 100 MG TABLET PO (08:13)
[2021-04-15 08:40] LABS: Glucose Point of Care 86 mg/dl (65-105)
--- NOTE | 2021-04-15 11:31 | PM.IMPN ---
Progress Note: A&P Assessment and Plan (1) Aspiration pneumonia: Code(s): J69.0 - Pneumonitis due to inhalation of food and vomit Status: Acute Assessment and Plan: Patient admitted for altered mental status, nausea, vomiting; mentation improved after administration of narcan on the field; found to have bilateral lunbg infiltrates and started on levofloxacin. Blood cultures are in progress; we will continue supportive care, aspiration and fall precautions. interval history 04/15 patient was brought to the emergency depart with altered mental status concerning for seizure-like activity and illicit drug used patient was given Narcan and Keppra, patient urine drug tox is negative for alcohol and illicit drugs, patient states she has been drinking alcohol does not remember when was her last drink was, patient started on folic acid and thiamine, start the CIWA protocol, patient is suspected having aspiration pneumonia being treated with levofloxacin will add Augmentin to cover for anaerobic, patient remains clinically stable will have a PT OT evaluate the patient. (2) Fall: Code(s): W19.XXXA - Unspecified fall, initial encounter Status: Acute Assessment and Plan: No injuries on physical examination and no gross deficit noted. (3) Alcohol use: Code(s): Z72.89 - Other problems related to lifestyle Status: Acute Assessment and Plan: CIWA protocol as needed. Patient started on thiamine and folate supplementation. (4) Tobacco use: Code(s): Z72.0 - Tobacco use Status: Acute Assessment and Plan: Nicotine patch as needed (5) Altered mental status: Code(s): R41.82 - Altered mental status, unspecified Status: Acute Assessment and Plan: Patient admitted for altered mental status, was reported to have evidence of substance use. Urine tox screen unrevealing. She improved after narcan. She was started on IV fluids, thiamine, folic acid. 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 She was loaded with keppra. Maintain fall, seizure and aspiration precautions. Subjective Date/time seen: 04/15/21 11:31 Patient admitted for altered mental status, nausea, vomiting; mentation improved after administration of narcan on the field; found to have bilateral lungs infiltrates and started on levofloxacin. Blood cultures are in progress; we will continue supportive care, aspiration and fall precautions. interval history 04/15 patient was brought to the emergency depart with altered mental status concerning for seizure-like activity and illicit drug used patient was given Narcan and Keppra, patient urine drug tox is negative for alcohol and illicit drugs, patient states she has been drinking alcohol does not remember when was her last drink was, patient started on folic acid and thiamine, start the CIWA protocol, patient is suspected having aspiration pneumonia being treated with levofloxacin will add Augmentin to cover for anaerobic, patient remains clinically stable will have a PT OT evaluate the patient. Review of Systems Review of Systems: All systems reviewed & are unremarkable except as noted in HPI and below ROS unobtainable: Yes unobtainable due to mental status Exam Narrative: Patient is comfortable, NAD HEENT: eyes are clear and none icteric LUNGS: bilateral fair air entry with rhonchi HEART: RR S1S2 ABD: BS+, Soft and nontender Lower extremities: no edema SKIN: nonjaundiced Neuro: grossly intact. Objective Data Vital Signs Vital Signs: Vital Signs - 24 hr 04/14/21 12:00 04/14/21 14:00 04/14/21 16:00 Temperature 97.6 F Pulse Rate 90 95 95 Respiratory Rate 20 Blood Pressure 118/58 L Pulse Oximetry 100 04/14/21 20:00 04/14/21 22:00 04/15/21 00:00 Temperature 97.0 F L Pulse Rate 96 82 75 Respiratory Rate 16 Blood Pressure 112/70 Pulse Oximetry 100 100 04/15/21 04:00 04/15/21 05:55 04/15/21 08:00 Temperature 97.2 F L Pulse Ra
[2021-04-15 13:23] LABS: Glucose Point of Care 94 mg/dl (65-105)
[2021-04-15] MEDS: AMOXICILLIN/CLAVULANATE K 500-125 MG TAB 1 TABLET PO ×2 (15:31→21:05)
[2021-04-15 18:57] LABS: Glucose Point of Care 94 mg/dl (65-105)
[2021-04-15 21:29] LABS: Glucose Point of Care 103 mg/dl (65-105)
[2021-04-16] VITALS: PULSE 74
[2021-04-16] MEDS: chlordiazePOXIDE (*CRX) 25 MG CAPSULE PO (00:16)
[2021-04-16 04:00] VITALS: PULSE 87
[2021-04-16 05:39] VITALS: BP 100/62; PULSE 91; RESP 18; TEMP 37.1; O2SAT 100
[2021-04-16] MEDS: AMOXICILLIN/CLAVULANATE K 500-125 MG TAB 1 TABLET PO (06:02)
[2021-04-16 08:00] VITALS: PULSE 130
--- NOTE | 2021-04-16 08:00 | PC.NURSE ---
Reviewed nursing clerk documentation and agree with assessment charted.
[2021-04-16 08:13] LABS: Glucose Point of Care 150 mg/dl (65-105)
[2021-04-16] MEDS: FOLIC ACID 1 MG TABLET PO (08:13)
[2021-04-16] MEDS: levETIRAcetam 500 MG TABLET 1000 MG PO (08:13)
[2021-04-16] MEDS: THIAMINE HCL 100 MG TABLET PO (08:13)
[2021-04-16 09:06] LABS: Basophils Percent Auto 0.6 % (0.2-1.2); Eosinophils Absolute Auto 0.3 K/mm3 (0-0.3); Eosinophils Percent Auto 7.3 % (0-4.4); Hematocrit 28.6 % (37.0-47.0); Hemoglobin 8.4 g/dL (12.0-15.0); Immature Granulocyte Absolute 0.01 K/mm3 (0.00-0.031); Immature Granulocyte Percent A 0.3 % (0-0.5); Immature Platelet Fraction Pct 6.1 % (0.9-11.2); Lymphocytes Absolute Auto 0.83 K/mm3 (0.9-3.2); Lymphocytes Percent Auto 23.4 % (18.3-44.2); Mean Corpuscular HGB Conc 29.4 g/dl (32-36); Mean Corpuscular Hemoglobin 22.7 pg (26-34); Mean Corpuscular Volume 77.3 fl (80-100); Monocytes Absolute Auto 0.3 K/mm3 (0.1-0.6); Monocytes Percent Auto 7.3 % (2.6-8.5); Neutrophils Absolute Auto 2.2 K/mm3 (1.3-6.7); Neutrophils Percent Auto 61.1 % (45.5-73.1); Platelet Count Result 71 k/mm3 (150-375); Red Cell Distribution Width 18.6 % (11.5-14.5); White Blood Count 3.5 K/mm3 (4.5-10.0)
[2021-04-16 09:18] LABS: Alanine Aminotransferase 17 U/L (4-35); Albumin Level 3.3 g/dL (3.5-5.1); Alkaline Phosphatase 120 U/L (38-126); Anion Gap 8 mmol/L (8-16); Aspartate Amino Transferase 36 U/L (14-36); Bilirubin,Total 1.4 mg/dL (0.2-1.3); Blood Urea Nitrogen 7 mg/dL (7-17); Calcium 8.7 mg/dL (8.4-10.2); Carbon Dioxide 20 mmol/L (22-30); Chloride 108 mmol/L (98-107); Estimated CRCL calculation 96 ml/min; Estimated Glomerular Filt Rate > 60; Glucose 178 mg/dL (65-110); Magnesium 1.5 mg/dL (1.6-2.3); Phosphorus 3.5 mg/dL (2.5-4.5); Potassium 3.6 mmol/L (3.4-5.0); Sodium 136 mmol/L (137-145)
[2021-04-16 10:20] VITALS: PULSE 97
--- NOTE | 2021-04-16 11:25 | PC.NURSE ---
Dr. Butler at bedside talking with patient about plan of care. Patient states she does not wish to stay and wants to leave against medical advice. Risks of leaving were explained in detail by Dr. Butler. Patient verbalized understanding of continues to insist on signing out AMA. States her is on the way to pick her up and take her home. AMA papers signed by patient. Patient is awaiting 's arrival.
--- NOTE | 2021-04-16 11:59 | PC.NURSE ---
Patient transported to 's car via wheelchair with staff.
--- NOTE | 2021-04-16 13:29 | PC.NURSE ---
On 04/16/21, the student, Mary Marcum, provided care and completed [facility] documentation on this patient. I have reviewed the student's documentation and agree with the findings.
--- NOTE | 2021-04-16 14:35 | PM.EVENT ---
Event Note Event Note Event Note: went to interview patient and discussed anemia in addition to cirrhosis, and possible long-term seizure therapy. Patient said she feels completely normal, and wants to go home today. Informed patient that given anemia, she should stay so we can trend hemoglobin and work up etiology She said she was not wiling to do this, asked her to explain consequences of leaving, including ongion GI bleed - potentially fatal, and she was able to convey this back to me. There is no mental impairment, AOX4, understands medical condition. Nurse was present for discussion. Patient signed AMA form and left.
== END 2021-04-16 11:55 | disposition left against medical advice (07) | DRG 179 ==
LOC: ANHED 04-14 01:19 → ANH2MED 04-14 01:27
PROVIDERS: Admitting Provider Internal Medicine; Emergency Provider General Practice; PCP Family Medicine; Visit Provider Internal Medicine
DX: J69.0 Pneumonitis due to inhalation of food and vomit (principal); Z20.822 Contact with and (suspected) exposure to COVID-19; R41.82 Altered mental status, unspecified; R56.9 Unspecified convulsions; F10.20 Alcohol dependence, uncomplicated; F19.10 Other psychoactive substance abuse, uncomplicated; F17.210 Nicotine dependence, cigarettes, uncomplicated; K74.60 Unspecified cirrhosis of liver; D64.9 Anemia, unspecified; F41.9 Anxiety disorder, unspecified; F32.9 Major depressive disorder, single episode, unspecified; I10 Essential (primary) hypertension; W19.XXXA Unspecified fall, initial encounter
CPT/HCPCS: 36415; 36600; 70450; 71045; 80053; 80307; 81001; 82140; 82375; 82805; 82948; 83050; 83735; 84100; 85025; 85055; 85610; 85730; 87040; 87426; 93005; 96365; 96366; 96367; 96375; 97162; 97165; 99285; A9270; C9803; G0378; J0456; J0696; J1956; J7030

== ENCOUNTER 2021-05-22 08:39 | Outpatient (CLI) | payer OTHER, SELFPAY ==
--- NOTE | ~2021-05-22 | XR_ITS ---
XR hip RT 2V w AP pelvis DATE: 05/22/2021 09:03 INDICATION: Right hip pain following ground-level fall one week ago TECHNIQUE: AP pelvis. AP and lateral views of the right hip. COMPARISON: None FINDINGS: No pelvic fracture or bone destruction. The pubic symphysis and sacroiliac joints are intac t. No fracture or dislocation, avascular necrosis or bone destruction of the right hip. Hip joint spaces appear symmetric and well preserved. IMPRESSION: Negative Reviewed, dictated and finalized at location B. IMPRESSION: Negative
== END 2021-05-22 08:40 | disposition home or self-care (01) ==
LOC: ANHIMG 08:43
PROVIDERS: PCP Family Medicine; Visit Provider Physician Assistant Medical
DX: M25.551 Pain in right hip (principal); G89.29 Other chronic pain
CPT/HCPCS: 73502

== ENCOUNTER 2022-01-02 13:29 | Emergency (ER) | payer OTHER, MEDICAID, SELFPAY ==
[2022-01-02] VITALS (57 sets, daily range): BP systolic 90–120; BP diastolic 46–81; PULSE 83–113; RESP 12–30; TEMP 37–37.5; O2SAT 95–100
--- NOTE | ~2022-01-02 | CT_ITS ---
EXAMINATION: CT brain wo con DATE: 01/02/2022 19:00 INDICATION: Seizure. TECHNIQUE: Computed tomography (CT) of the head was performed without intravenous contrast. The dose- length product was 605.33 mGy-cm. Automated exposure control and iterative reconstruction technique w ere employed. COMPARISON: CT dated 04/13/2021 FINDINGS: Right frontal lobe infarction. There are scattered mild periventricular and subcortical whi te matter changes, most likely related to small vessel ischemic disease (microangiopathy). Generalize d atrophy, accelerated for age. No ventriculomegaly or midline shift. Basilar cisterns are patent. Pa ranasal sinuses and mastoids are pneumatized. No depressed skull fractures. IMPRESSION: 1. No acute intracranial abnormality. 2: Small chronic right frontal lobe infarction. 3: Chronic age-related findings, accelerated for age. Reviewed, dictated and finalized at location A.
--- NOTE | ~2022-01-02 | XR_ITS ---
XR chest 1V portable 01/02/2022 17:04 Indication: Sepsis. Hemoptysis. Procedure: AP portable chest Comparison: Comparison to multiple prior studies sequentially, with oldest reviewed study dated 03/28. Findings: There is developing bibasilar airspace disease. There is elevation of the right diaphragm w hich appears chronic. Heart size is normal. No pneumothorax. No acute osseous abnormality. Impression: 1: Developing bibasilar airspace disease, compatible with pneumonia. Reviewed, dictated and finalized at location A. Impression: 1: Developing bibasilar airspace disease, compatible with pneumonia.
--- NOTE | 2022-01-02 13:36 | ECG_ITS ---
Measurements Intervals [place] Rate: 110 P: 50 [place]: 195 QRS: -8 QRSD: 90 T: 54 QT: 356 QTc: 482 Interpretive Statements SINUS TACHYCARDIA INFERIOR INFARCT, AGE INDETERMINATE ST-T WAVE ABNORMALITY IN ANTEROLATERAL LEADS- CONSIDER ISCHEMIA BASELINE ARTIFACT- II, III, AVF, V4-V5 ABNORMAL ECG Electronically Signed On 01-02-2022 14:28:33 CDT by Nba Arevalo D.O.
[2022-01-02] MEDS: SODIUM CHLORIDE 0.9% IV 1,000 ML 150 ML IV CONT (13:45)
[2022-01-02 14:01] LABS: Basophils Absolute Auto 0.1 K/mm3 (0.0-0.1); Basophils Percent Auto 0.7 % (0.2-1.2); Eosinophils Absolute Auto 0.1 K/mm3 (0-0.3); Eosinophils Percent Auto 1.3 % (0-4.4); Hematocrit 22.6 % (37.0-47.0); Immature Granulocyte Absolute 0.08 K/mm3 (0.00-0.031); Immature Granulocyte Percent A 1.2 % (0-0.5); Immature Platelet Fraction Pct 5.1 % (0.9-11.2); Lymphocytes Absolute Auto 0.64 K/mm3 (0.9-3.2); Lymphocytes Percent Auto 9.2 % (18.3-44.2); Mean Corpuscular HGB Conc 29.2 g/dl (32-36); Mean Corpuscular Hemoglobin 22.6 pg (26-34); Mean Corpuscular Volume 77.4 fl (80-100); Monocytes Absolute Auto 0.6 K/mm3 (0.1-0.6); Monocytes Percent Auto 9.2 % (2.6-8.5); Neutrophils Absolute Auto 5.5 K/mm3 (1.3-6.7); Neutrophils Percent Auto 78.4 % (45.5-73.1); Platelet Count Result 44 k/mm3 (150-375); Red Blood Count 2.92 M/mm3 (4.2-5.4)
[2022-01-02 14:09] LABS: Ammonia 69 umol/L (9-30)
[2022-01-02 14:11] LABS: Alanine Aminotransferase 17 U/L (6-35); Albumin Level 2.5 g/dL (3.5-5.1); Alkaline Phosphatase 331 U/L (38-126); Anion Gap 14 mmol/L (8-16); Aspartate Amino Transferase 104 U/L (14-36); Blood Urea Nitrogen 3 mg/dL (7-17); Calcium 7.3 mg/dL (8.4-10.2); Carbon Dioxide 16 mmol/L (22-30); Chloride 105 mmol/L (98-107); Estimated CRCL calculation 76 ml/min; Estimated Glomerular Filt Rate > 60; Glucose 85 mg/dL (65-110); Hemoglobin 6.6 g/dL (12.0-15.0); INR 2.7; Potassium 2.9 mmol/L (3.4-5.0); Prothrombin Time 27.7 Seconds (11.1-14.7); Sodium 135 mmol/L (137-145)
[2022-01-02 14:35] LABS: Add Urine Microscopic? YES; Appearance Urine Slightly Cloudy (Clear); Bilirubin Urine 3+ (Negative); Blood Urine Negative (Negative); Color Urine Orange (Yellow); Glucose Urine UA Trace mg/dL (Negative); Ketones Urine 2+ mg/dL (Negative); Leukocyte Esterase Ur Negative LEU/UL (Negative); Nitrate Urine Positive (Negative); Protein Urine 1+ mg/dL (Negative); Specific Grav Ur 1.015 (1.001-1.035)
[2022-01-02 14:39] LABS: Amorphous Sediment Urine Few; Bacteria Urine Trace /hpf; Mucus Urine Few /lpf; Squamous Epithelial Cell Urine Many /hpf (Few)
[2022-01-02 14:47] LABS: Platelet Estimate Decreased (Adequate)
[2022-01-02 14:48] LABS: Hypochromasia 2+ (NORMAL)
[2022-01-02 14:49] LABS: Anisocytosis 1+ (NORMAL)
[2022-01-02 14:50] LABS: Microcytosis 2+ (NORMAL)
[2022-01-02 14:52] LABS: Spherocytes 1+ (NORMAL); Target Cells 2+ (NORMAL)
--- NOTE | 2022-01-02 15:30 | PC.NURSE ---
ERP notified of Pt. 1 round of hematemesis which was bright red.
[2022-01-02] MEDS: SODIUM CHLORIDE 0.9% IV 1,000 ML 999 ML IV CONT (16:24)
[2022-01-02 17:18] LABS: SARS-CoV-2 RNA PCR Negative
[2022-01-02] MEDS: POTASSIUM CHLORIDE INJ 40 MEQ in SODIUM CHLORIDE 0.9% IV 500 ML 130 MEQ IVPB (17:21)
--- NOTE | 2022-01-02 17:24 | ED.GENADULT ---
HPI - General Adult General Chief complaint: Alcohol <Moises Negrete MD - Last Filed: 01/02/22 18:46> Stated complaint: weakness, +ETOH <Moises Negrete MD - Last Filed: 01/02/22 18:46> Time Seen by Provider: 01/02/22 13:35 <Moises Negrete MD - Last Filed: 01/02/22 18:46> Source: patient and EMS <Moises Negrete MD - Last Filed: 01/02/22 18:46> Mode of arrival: EMS <Moises Negrete MD - Last Filed: 01/02/22 18:46> Limitations: no limitations <Moises Negrete MD - Last Filed: 01/02/22 18:46> History of Present Illness HPI narrative: 51-year-old with a cirrhosis liver secondary to alcohol abuse was brought in from home with complaints of seizure-like activity for past 1 week. Patient states her last alcoholic drink was 2 days ago. She denies any falls. No history of fever or chills. She is presently not taking any medications. Has not seen a national expansion recruiter in last several years. Patient states that she has seen Dr. Dorantes at [facility] several years ago . She denies any nausea, vomiting however she reports that she is having white chalky colored stool. <Moises Negrete MD - Last Filed: 01/02/22 18:46> Onset (ago): day(s) (3) <Moises Negrete MD - Last Filed: 01/02/22 18:46> Associated symptoms: denies other symptoms <Moises Negrete MD - Last Filed: 01/02/22 18:46> Related Data Home medications: Home Medications Medication Instructions Recorded Confirmed levetiracetam 1,000 mg tablet 1,000 mg PO BID 02/14/21 05/22/21 (Keppra) furosemide 40 mg tablet 40 mg PO BID 04/14/21 05/22/21 <MD Waldemar Mckoy Last Filed: 01/02/22 18:46> Allergies/adverse reactions: Allergies Allergy/AdvReac Type Severity Reaction Status Date / Time No Known Allergies Allergy Verified 06/25/21 07:46 <Moises Negrete MD - Last Filed: 01/02/22 18:46> Review of Systems Review of Systems: All systems reviewed & are unremarkable except as noted in HPI and below <Moises Negrete MD - Last Filed: 01/02/22 18:46> Constitutional: Constitutional: Reports no additional constitutional complaints <Moises Negrtee MD - Last Filed: 01/02/22 18:46> Eyes: Eyes: Reports no additional eye complaints <Moises Negrete MD - Last Filed: 01/02/22 18:46> ENT: Reports system reviewed and no additional complaints, except as documented <Moises Negrete MD - Last Filed: 01/02/22 18:46> Cardiovascular: Cardiovascular: Reports no additional cardiovascular complaints <Moises Negrete MD - Last Filed: 01/02/22 18:46> Respiratory: Respiratory: Reports no additional respiratory complaints <Moises Negrete MD - Last Filed: 01/02/22 18:46> Gastrointestinal: Gastrointestinal: Reports as per HPI <Moises Negrete MD - Last Filed: 01/02/22 18:46> Musculoskeletal: Comments: Has neuropathic pain in the lower extremity <Moises Negrete MD - Last Filed: 01/02/22 18:46> Integumentary/Breasts: Skin/Breast: Reports system reviewed and no additional complaints, except as docu <Moises Negrete MD - Last Filed: 01/02/22 18:46> Neurologic: Reports as per HPI <Moises Negrete MD - Last Filed: 01/02/22 18:46> PMFSH Past Medical History Medical History: Medical History Anxiety Arm fracture, left BMI 20.0-20.9, adult Cirrhosis Depression HTN (hypertension) Hypertension History of hypertension, she reports she was taken off blood pressure medications by her doctor and no longer takes them. Miscarriage Ovarian torsion Fixed with surgery UTI (urinary tract infection) <Moises Negrete MD - Last Filed: 01/02/22 18:46> Surgical History Surgical History: Surgical History H/O left wrist surgery History of gynecologic surgery For ovarian torsion <Moises Negrete MD - Last Filed: 01/02/22 18:46> Family History Family History: Family History (Reviewed 01/02/22 @ 18:
[2022-01-02] MEDS: SODIUM CHLORIDE 0.9% IV 250 ML 30 ML IV CONT ×2 (17:47→19:59)
[2022-01-02] MEDS: TUBING, BLOOD SET 1 EACH XX ×2 (17:47→19:59)
[2022-01-02] MEDS: PHYTONADIONE INJ 10 MG/ML AMP 5 MG SUB-Q (18:06)
--- NOTE | 2022-01-02 19:08 | PC.NURSE ---
Dr. Jaramillo - [facility] ICU accepted - will not have a bed for a day or more.
--- NOTE | 2022-01-02 20:47 | PC.NURSE ---
Call [facility] AT 2047. ETA 2200.
[2022-01-02] MEDS: PANTOPRAZOLE SODIUM IV 40 MG VIAL IV PUSH (21:48)
== END 2022-01-02 22:20 | disposition short-term general hospital (02) ==
PROVIDERS: Family Medicine; Emergency Provider Emergency Medicine
DX: K70.30 Alcoholic cirrhosis of liver without ascites (principal); D64.9 Anemia, unspecified; K92.2 Gastrointestinal hemorrhage, unspecified; D69.6 Thrombocytopenia, unspecified; E87.6 Hypokalemia; R79.1 Abnormal coagulation profile; F10.10 Alcohol abuse, uncomplicated; I10 Essential (primary) hypertension; Z20.822 Contact with and (suspected) exposure to COVID-19; Z87.440 Personal history of urinary (tract) infections; Z87.891 Personal history of nicotine dependence
CPT/HCPCS: 36415; 36430; 70450; 71045; 80053; 81001; 82140; 85025; 85055; 85610; 86850; 86900; 86901; 86920; 87040; 93005; 96361; 96365; 96372; 96375; 99285; C9113; C9803; J2543; J3430; J3480; J7030; J7040; J7050; P9016; P9017; P9034; U0003; U0005

== ENCOUNTER 2022-01-20 09:29 | Emergency (ER) | payer OTHER, MEDICAID, SELFPAY ==
[2022-01-20 09:34] VITALS: BP 103/51; PULSE 89; RESP 16; TEMP 36.3; O2SAT 98
--- NOTE | 2022-01-20 10:23 | PC.NURSE ---
Spoke with Lucia in Care Coordination - coming to speak with family about hospice.
--- NOTE | 2022-01-20 10:45 | ED.AMS ---
HPI - Altered Mental Status General Chief Complaint: Altered Mental Status Stated Complaint: decreased LOC Time Seen by Provider: 01/20/22 09:33 Source: family (mother and ) and RN notes reviewed Mode of arrival: EMS Limitations: altered mental status History of Present Illness HPI narrative: This is a 51 year old female with history of alcohol abuse, cirrhosis, liver failure who presents for evaluation of progressive weakness. Patient was evaluated at [facility] on 01/02/2022. She was found to have severe anemia, thrombocytopenia, coagulopathy and alcoholic hepatitis. Patient had started back drinking to cause worsening liver disease. She was transferred to [facility] for treatment. She was discharged from [facility] on 01/14/22. It sounds like from family she was found to have portal vein thrombosis. Family reports her bilirubin was 40 at [facility]. IT was 22 at [facility] so it increased. Family was told they should consider hospice or send patient to [facility]. Patient refused [facility]. Patient's mother and are at bedside. They reports patient has been sleeping all day yesterday and she has not been able to get up to walk since yesterday. They also reports she had severe nose bleeding yesterday. Today patient is confused. Family is requesting for patient to home on hospice. At this time they do not want blood work or imaging. They understand poor prognosis of patient. Related Data Home Medications Medication Instructions Recorded Confirmed levetiracetam 1,000 mg tablet 1,000 mg PO BID 02/14/21 05/22/21 (Keppra) furosemide 40 mg tablet 40 mg PO BID 04/14/21 05/22/21 Allergies Allergy/AdvReac Type Severity Reaction Status Date / Time No Known Allergies Allergy Verified 01/20/22 09:50 Review of Systems Review of Systems: ROS unobtainable: Yes unobtainable due to mental status PMFSH Past Medical History Medical History Anxiety Arm fracture, left BMI 20.0-20.9, adult Cirrhosis Depression HTN (hypertension) Hypertension History of hypertension, she reports she was taken off blood pressure medications by her doctor and no longer takes them. Liver failure Miscarriage Ovarian torsion Fixed with surgery UTI (urinary tract infection) Surgical History Surgical History H/O left wrist surgery History of gynecologic surgery For ovarian torsion Family History Family History Father Gastric cancer Diabetes mellitus Family history of alcoholism Sibling Alcoholism Family history of alcoholism Mother Family history of alcoholism Social History Social History Social History: The patient drinks equivalent of 10 drinks 4-5 days a week. She is no longer smoking but has the past history of smoking. She does not work. Her surrogate decision maker is her Marcelo Smoking packs per day: 0.15 Smoking cigarettes per day: 3.0 Years smoked: 6 Smoking pack-years: 0.90 Smoking status: Former smoker Tobacco type: cigarettes Second hand tobacco smoke exposure: No Additional smoking assessment comments: quit in 2018 Alcohol intake: current Drinks per week: 30 Substance use: never Substance use type: does not use Gender identity (if verbalized by the patient): Female Sexual Orientation (if Verbalized by the Patient): Straight or Heterosexual Spiritual care concerns: No Exam Const: General: ill appearing Limitations: altered mental status Other: oriented to self HENMT: Mouth: Yes dry mucous membranes Eyes: Conjunctivae: conjunctival abnormality bilateral conjunctival icterus EOM: EOMs intact bilaterally Resp: Effort & Inspection: normal respiratory effort Auscultation: clear
[2022-01-20 11:06] VITALS: BP 99/47; PULSE 85; RESP 16; O2SAT 97
--- NOTE | 2022-01-20 11:10 | PCCCNOTE ---
Addendum entered by Lucia Willson RN 01/20/22 12:44: Consents have been signed by family for [facility], awaiting equipment to be delivered to patient's home Addendum entered by Lucia Willson RN 01/20/22 11:34: Erika from [facility] is here and meeting with family in family services room. Original Note: Phone call received from ED salesperson driver Susie for hospice consult. Met with patient, spouse and mother of patient at bedside in ED 14. Patient and family wanting to go home with hospice. Mother Mackenzie and spouse Marcelo requesting [facility]. Called to [facility] kathleen Villareal she requests that residential care officer fax over ED note, hospice order and demographics sheet to [phone]. She will have another nurse met with family/ patient here in the ED. Fax'd referral as requested with success.
[2022-01-20 12:51] VITALS: BP 102/48; PULSE 78; RESP 14; O2SAT 100
[2022-01-20 14:19] VITALS: BP 95/45; PULSE 70; RESP 14; O2SAT 99
--- NOTE | 2022-01-20 14:20 | PC.NURSE ---
Pt is resting no s/s of distress, mom at bedside waiting on Hospice to come and eval
--- NOTE | 2022-01-20 14:43 | PC.NURSE ---
called into room that pt was seizing. when this RN arrived pt was no longer seizing. visitor states pt was violently shaking and last approx 15 secs
[2022-01-20 14:46] VITALS: BP 94/46; PULSE 82; RESP 16; O2SAT 98
--- NOTE | 2022-01-20 16:24 | PC.NURSE ---
Pt admitted to Hospice, ready to go home.
[2022-01-20 16:25] VITALS: BP 96/45; PULSE 85; RESP 16; O2SAT 98
== END 2022-01-20 16:31 | disposition hospice, home (50) ==
PROVIDERS: Emergency Provider General Practice
DX: K72.10 Chronic hepatic failure without coma (principal); K74.60 Unspecified cirrhosis of liver; I10 Essential (primary) hypertension; Z87.891 Personal history of nicotine dependence
CPT/HCPCS: 99281